=== PATIENT | male | born 1965 | race Caucasian/White ===

== ENCOUNTER 2017-10-30 20:12 | Emergency (ER) | payer MEDICAID, SELFPAY ==
[2017-10-30 20:13] VITALS: BP 130/62; PULSE 87; RESP 15; TEMP 37; O2SAT 98; BMI 23.3
--- NOTE | 2017-10-30 21:05 | ED.VISSUMM ---
- ER Visit Summary Date of Service: 10/30/17 Chief Complaint: Lower extremity rash History of Present Illness: The patient is a 52 M to the emergency department with lower extremity rash. Patient was out in the [place] over the weekend. He thinks that he has poison [place]. He said this before and he feels the same. He does have some mild irritation of the lower extremity. He did try calamine lotion with no relief. He has no history of immunosuppression. He is not a diabetic. The patient is otherwise healthy. Physical Examination: M is relatively unremarkable. Patient has evidence of linear, contact dermatitis of the left lower extremity. No cellulitis or weeping. Pulses are normal. Test Results: [] Emergency Department Course and Treatment: Will be treated with prednisone here. He will continue Benadryl. He will be kept on a prednisone burst. Patient be discharged home. Treatment Plan: [] Disposition: Discharge Impression: 1. Contact dermatitis This note was generated with [employer] dictation software. It may contain incorrect words, spelling, and punctuation that were not noted in review of the chart prior to signing ED Disposition - Plan for ED Patient: Chief Complaint: Rash Instructions: ED Dermatitis Poison [place] Prescriptions: Prednisone 10 mg PO UD #33 tab Referrals: Care Physician,No Primary [Primary Care Provider] -
[2017-10-30] MEDS: predniSONE 20 MG Tablet 60 MG PO (21:06)
== END 2017-10-30 21:25 | disposition home or self-care (01) ==
PROVIDERS: Emergency Provider Emergency Medicine
DX: L24.7 Irritant contact dermatitis due to plants, except food (principal); Z72.0 Tobacco use
CPT/HCPCS: 99283

== ENCOUNTER 2021-03-24 15:27 | Emergency (ER) | payer MEDICAID, SELFPAY ==
[2021-03-24 15:28] VITALS: BP 152/107; PULSE 55; RESP 16; TEMP 36; O2SAT 100; BMI 21.4
--- NOTE | 2021-03-24 15:42 | ED.VIS.GI ---
HPI HPI - GI History of Present Illness Chief Complaint: Shortness of Breath Detail of Chief Complaint: Patient states epigastric pain with nausea and vomiting not shortness of br Informant: patient Abdominal Pain/Flank Pain Onset: Weeks (1 to 2 weeks) Context: Sudden Onset Timing: Continuous Quality: Aching Location: Epigastric Current Severity: Moderate Maximum Severity: Severe Worsened by: Nothing; Not Worsened By Car ride, Food and Movement Relieved by: Nothing; Not Relieved By Antacids, Food and Remaining Still Nausea/Vomiting/Emesis GI Symptom: Positive for Nausea and Vomiting Onset: Weeks (For 1 to 2 weeks) Quality: Negative for Blood streaks, Coffee ground and Hematemesis Severity: Severe Diarrhea/Melena/Hematochezia GI Symptom: Negative for Diarrhea, Melena and Hematochezia Associated Symptoms Associated Symptoms: Negative for Dysuria, Frequency, Hematuria and Urgency Narrative Narrative: Patient is a 55-year-old male with no sniffing past medical history who is incompletely vaccinated for Covid. He presents because of epigastric pain with nausea vomiting started 1 to 2 weeks ago. He does report nasal congestion. He states he has a sore throat, which he believes is due to the vomiting. He states he is vomited numerous times per day. He feels lightheaded, thirsty and dry mouth. His significant other and her children are not ill. He states she became very ill and remained ill for weeks after receiving the first dose of the Pfizer vaccine. He did not get the second dose because of the reaction he had to the first. He does admit to smoking 1 pack/day. His cough is nonproductive and unchanged. He denies headache, visual, ocular auditory symptoms. He denies decreased hearing or ringing in his ears. He denies loss of taste or smell. He denies cardiac or respiratory symptoms. He denies rash. Denies change in the color his stool, consistency, caliber or frequency. He denies history of hepatitis. He denies history of hiatal hernia, GERD or ulcer. Prior similar symptoms: No Recent Illness/Hospitalization: No PFSH PFSH Medical History no medical history no medical history Home Medications ondansetron 4 mg PO Q8H PRN PRN #10 tab 03/24/21 [Rx Last Taken Unknown] Allergy/AdvReac Type Severity Reaction Status Date / Time No Known Allergies Allergy Verified 03/24/21 15:28 Surgical History no surgical history no surgical history Social History (Updated 03/24/21 @ 15:[address] Reji Foreman MD) household members: significant other and children Smoking Status: Current every day smoker tobacco type: cigarettes alcohol intake: current alcohol intake frequency: other substance use type: marijuana ROS ROS ED Constitutional Constitutional ED: Reports chills, fever(s) and subjective; Denies sweats or weight loss ENT ENT ED: Reports sore throat; Denies ear pain or rhinorrhea Cardiovascular Cardiovascular: Denies chest pain, orthopnea, palpitations or paroxysmal nocturnal dyspnea Respiratory/Chest Respiratory/Chest: Reports cough; Denies dyspnea, dyspnea on exertion, orthopnea, paroxysmal nocturnal dyspnea or sputum Gastrointestinal Gastrointestinal: Reports abdominal pain, nausea and vomiting; Denies constipation, diarrhea or melena Genitourinary Genitourinary ED: Denies dysuria, hematuria or urinary frequency Musculoskeletal Musculoskeletal: Reports arthralgias and myalgias; Denies back pain or neck pain Integumentary Denies rash Neurologic Neurologic: Reports weakness; Denies headache(s) or paresthesias Endocrine Endocrinology: Denies polydipsia, polyphagia or polyuria Hematologic/Lymphatic Hematologic/Lymphatic: Denies easy bleeding or easy bruising EXAM Physical Exam Const Vital Signs: 03/24/21 15:28 03/24/21 16:10 03/24/21 16:11 Temperature 96.8 F L Temperature Source Temporal Pulse Rate 55 L Respiratory Rate 16 Respiratory Effort Normal Non-Labored Respiratory Pattern Normal Blood Pressure 152/107 H 176/95 H Blood Pressure Mean 122 122 Pulse Ox 100 Oxygen Delivery Method Room Air Positive well nourished and well developed General Appearance ED: well developed and other Patient does not appear well. Is not toxic. ; Negative for pallor HEENT Reports TM's clear and dry mucous membranes normocephalic and atraumatic Tympanic Membrane ED: Yes TM's clear Mouth ED: Yes dry mucous membranes Mouth: dry mucous membranes Eyes PERRL and EOMs intact bilaterally General Eye ED: Negative for pale conjunctiva or scleral icterus Neck no lymphadenopathy, supple and no JVD Resp normal respiratory effort and clear to auscultation bilaterally Cardio regular rate, regular rhythm, S1 normal heart sound and S2 normal heart sound GI non-distended and no masses; Negative for non-tender Inspection: other Other Details: Shorts are noted to be very loose. He reports significant weight loss. Does not know how much. Auscultation: Negative for normoactive bowel sounds Palpation: soft, tender epigastric and guarding; Negative for rigid or rebound tenderness present Back/Spine no CVA tenderness Cervical Spine: Negative for cervical spine tenderness Thoracic Spine / Upper Back: Negative for thoracic spinal tenderness Extremity full ROM General Extremety ED: Negative for edema or tenderness General Extremity: Negative for edema Neuro CN's II-XII intact bilaterally, moves all extremities and no sensory deficits noted Sensorium / Orientation: alert, oriented to person, oriented to place and oriented to time Psych mental status grossly normal and thought process normal Skin General Skin Exam: Negative for jaundice or pallor Lesions: no lesions Rashes: no rashes Trauma: abrasion MDM MDM MDM Narrative Medical decision making narrative: Patient presents with nausea vomiting. This may represent viral illness. This could represent Covid. Clinically appears dehydrated. 1 L of normal saline was ordered. CBC was obtained to assess white count as well as H&H. Comprehensive metabolic panel to assess transaminases, anion gap, renal function. Also to assess if there is any acid-base disturbance. I.e. anion gap and electrolyte abnormality. Lipase was obtained to rule out pancreatitis. He was medicated with Zofran for the nausea vomiting and morphine for the pain. Patient passed p.o. challenge. Is no longer having pain. He informed the nurse that he cannot wait for his home go instructions. I asked him for 5 to 10 minutes he states he may not be able to wait. Lab Data Attestation: I reviewed the patient's lab results. Lab results narrative: Laboratory results are unremarkable. CO2 is slightly elevated 34. BUN and creatinine are normal. ALT is slightly elevated. Lipase is below normal. Labs: Laboratory Results - last 24 hr 03/24/21 03/24/21 16:00 16:00 WBC 13.7 H RBC 5.14 Hgb 15.6 Hct 45.8 MCV 89.1 MCH 30.4 MCHC 34.1 RDW Std Deviation 42.2 RDW Coeff of Dwaine 12.8 Plt Count 272 MPV 8.5 Immature Gran % (Auto) 0.400 Neut % (Auto) 63.8 Lymph % (Auto) 24.8 [place] % (Auto) 8.1 Eos % (Auto) 2.3 Baso % (Auto) 0.6 Absolute Neuts (auto) 8.7 H Absolute Lymphs (auto) 3.39 Nucleated RBC % 0 Sodium 137 Potassium 3.9 Chloride 100 Carbon Dioxide 34.0 H Anion Gap 3 L BUN 13 Creatinine 0.70 Estim Creat Clear Calc 107.19 Est GFR (MDRD) Af Amer 151 Est GFR (MDRD) Non-Af 125 BUN/Creatinine Ratio 18.5 Glucose 107 H Calcium 9.7 Total Bilirubin 0.70 AST 38 H ALT 102 H Alkaline Phosphatase 121 H Total Protein 8.0 Albumin 3.9 Globulin 4.1 Albumin/Globulin Ratio 1.0 Lipase 72 L Discharge Plan Triage Chief Complaint: Shortness of Breath ED Provider: Reji Foreman Dx/Rx/DC Orders Clinical Impression: Intractable nausea and vomiting, Acute epigastric pain, Dehydration, mild Instructions: ED Vomiting (Adult) Prescriptions: New ondansetron [ondansetron] 4 MG tablet 4 mg PO Q8H PRN PRN (Reason: Nausea) Qty: 10 RF: 0 Primary Care Provider: Care Physician,No Primary Referrals: Fast,Mira, DO [NON-STAFF] - 3-5 Days if not improving Care Physician,No Primary [Primary Care Provider] - Disposition Disposition: Home, Self Care
[2021-03-24] MEDS: 0.9% Normal Saline 1,000 ML 1000 ML IV (16:04)
[2021-03-24] MEDS: Morphine 4 MG/ML Syringe IV (16:04)
[2021-03-24] MEDS: Ondansetron 4 MG/2 ML Vial IV (16:04)
[2021-03-24 16:07] LABS: Absolute Lymphocyte Count 3.39 X10^3/uL (0.83-4.51); Absolute Neutrophil Count 8.7 X10^3/uL (2.0-7.7); Basophil# 0.08 X10^3/uL; Basophil% 0.6 % (0-1); Eosinophil# 0.31 X10^3/uL; Eosinophils% 2.3 % (0-5); Hematocrit 45.8 % (40-54); Hemoglobin 15.6 g/dL (13.0-16.5); Lymphocyte # 3.39 X10^3/ul (0.83-4.51); Lymphocyte % 24.8 % (19-41); Mean Corp Hgb Conc 34.1 g/dL (32-36); Mean Corpuscular Hgb 30.4 pg (27.0-32.0); Mean Corpuscular Volume 89.1 fL (80-94); Mean Platelet Vol. 8.5 fl (6.2-12.0); Monocyte# 1.11 X10^3/uL; Monocyte% 8.1 % (0-10); NRBC Flagged by Analyzer 0 % (0-5); Neutrophil # 8.74 X10^3/uL (2.7-7.7); Neutrophil % 63.8 % (47-70); Platelet Count 272 K/mm3 (150-450); RBC Distribution Width CV 12.8 % (11.6-14.6); RBC Distribution Width SD 42.2 fl (35.1-43.9); Red Blood Count 5.14 M/mm3 (4.6-6.2); White Blood Count 13.7 K/mm3 (4.4-11.0)
[2021-03-24 16:10] VITALS: BP 176/95
[2021-03-24 16:24] LABS: BUN 13 mg/dL (7-18); Glucose 107 mg/dL (74-106)
[2021-03-24 16:25] LABS: AST(SGOT) 38 U/L (15-37); Alanine Aminotransfer ALT/SGPT 102 U/L (16-61); Albumin, Serum 3.9 g/dL (3.2-5.0); Alkaline Phosphatase 121 U/L (45-117); Anion Gap 3 (5-15); BUN/Creat Ratio 18.5 RATIO (10-20); Calcium,Total 9.7 mg/dL (8.5-10.1); Chloride 100 mmol/L (98-107); EST Glomerular Filtration Rate 125 mL/min (>60); Est Glom Filt Rate - Afr Amer 151 mL/min (>60); Estimated Creatinine Clearance 107.19 ml/min; Globulin 4.1 g/dL (2.2-4.2); Lipase 72 U/L (73-393); Potassium 3.9 mmol/L (3.5-5.1); Sodium Level 137 mmol/L (136-145)
[2021-03-24 18:37] VITALS: BP 161/90; PULSE 88; RESP 14; O2SAT 99
== END 2021-03-24 18:39 | disposition home or self-care (01) ==
PROVIDERS: Emergency Provider Emergency Medicine
DX: R11.2 Nausea with vomiting, unspecified (principal); R10.13 Epigastric pain; E86.0 Dehydration; F17.210 Nicotine dependence, cigarettes, uncomplicated; F12.10 Cannabis abuse, uncomplicated
CPT/HCPCS: 80053; 83690; 85025; 87426; 96374; 96375; 99283; J7030; A4216; J2405

== ENCOUNTER 2021-03-25 15:22 | Inpatient (IN) | payer MEDICAID, SELFPAY ==
[2021-03-25 15:23] VITALS: BP 163/100; PULSE 66; RESP 18; TEMP 36.6; O2SAT 99; BMI 20.1
[2021-03-25 16:00] LABS: Bacteria 0 SEEN /hpf (None Seen); Mucous, Urine 0 SEEN /hpf (<or=2+); Red Blood Cells-Urine 0 SEEN /hpf (0-5); Squamous Epithelial Cells - UA 0 SEEN /hpf (0-5); White Blood Cells 0 SEEN /hpf (0-5)
[2021-03-25 17:08] LABS: Color, Urine Yellow (Yellow); Glucose, Dipstick Normal (Normal); Ketone-Dipstick Negative (Negative); Leukocyte Esterase-Dipstick Negative /ul (Negative); Nitrite-Dipstick Negative (Negative); Occult Blood-Urine 10 /ul (Negative); Protein-Dipstick 30 mg/dl (Negative); Specific Gravity, Urine 1.015 (1.002-1.030); Urine Bilirubin Dipstick Negative (Negative); Urine Clarity Clear (Clear); Urine Urobilinogen Normal (Normal)
--- NOTE | 2021-03-25 17:14 | CT_ITS ---
HISTORY: abd pain, weight loss EXAMINATION: CT Abdomen And Pelvis W/ Contrast Injection TECHNIQUE: Helically acquired images were obtained of the abdomen and pelvis following oral and IV contrast. IV Contrast dosage and agent: 100mL Isovue-300 Oral contrast: Yes. COMPARISON: None. FINDINGS: LOWER CHEST: Lung bases are clear. No cardiomegaly or pericardial effusion. LIVER: Heterogenous enhancement pattern with higher attenuation along the gallbladder fossa suggesting steatosis. No focal mass. GALLBLADDER AND BILIARY TREE: Radiodense material in the gallbladder. Abnormal gallbladder distention with diffuse wall edema versus pericholecystic fluid. No intra- or extrahepatic biliary ductal dilation. PANCREAS: No focal cystic or solid mass. SPLEEN: Normal size without focal cystic or solid mass. ADRENAL GLANDS: No nodules. KIDNEYS AND URETERS: Normal renal size and position. No hydronephrosis or nephrolithiasis. PERITONEUM: No ascites or free air. BOWEL: No evidence of acute appendicitis. Abnormal gastric contour with possible stricture at the mid greater curvature and gas in the gastric wall posteriorly in the superior fundus suspicious for ulceration. Oral contrast does pass through small bowel into the proximal colon. No focal inflammatory bowel wall changes. LYMPH NODES: No enlarged mesenteric or retroperitoneal lymph nodes. VESSELS: Aorta is non-dilated. URINARY BLADDER: Unremarkable. REPRODUCTIVE ORGANS: No pelvic masses. ABDOMINAL WALL: No discrete abdominal or pelvic wall hernia. BONES: No acute or aggressive abnormality. CT/Abdomen/Pelvis WITH Contrast IMPRESSION: Abnormal gallbladder distention with probable cholelithiasis, wall thickening and pericholecystic fluid. Recommend correlation with gallbladder ultrasound for acute cholecystitis. Findings suspicious for ulcer in the gastric fundus posteriorly. Adjacent contour abnormality suggests stricture, inflammatory versus neoplastic. Consider endoscopic correlation. Individualized dose optimization techniques were used for this CT. at 2015 Reported and signed by: James Toscano MD Electronically Signed: James Toscano MD at 20:14 EDT Tel , Service support ,
--- NOTE | 2021-03-25 17:16 | ED.VIS.GI ---
HPI HPI - GI History of Present Illness Chief Complaint: Abd Pain Informant: patient Abdominal Pain/Flank Pain Onset: Month(s) Narrative Narrative: Patient presents reporting feeling sick since his initial Covid vaccination first dose. Initially reported it was 2 weeks ago stating office had 35 pound weight loss. Initial discard his initial Pfizer vaccination was January 26 nearly 2 months ago. He states he cannot think at this point. He is reporting intermittent abdominal pain vomiting since then that would improve for 2 days and comes back. Initially state if he seen any body or facilities he said no however later noted he was seen yesterday in the ED here. He states last bowel movement yesterday. Occasional blood in the stools. No anticoagulation medicines. He does not have a PCP. He does not take daily medicines. He states he urinates like a faucet. He states he has a cough. He has tobacco history. Denies family history of colon cancer. States return due to pain. He states he is not passing gas since his vaccination 2 months ago however states is having bowel movements. Reviewing records from yesterday he had abdominal labs normal had a white count 13.7. Given Zofran and morphine. He was feeling better. He left before discharge paperwork. Additional records notes does drink alcohol, noted from nursing that he smokes marijuana. He had a normal lipase yesterday. PFSH PFSH Medical History Anxiety [place] of trauma Smoker Substance abuse Substance abuse Tobacco use Medical History no medical history Home Medications ondansetron 4 mg PO Q8H PRN PRN #10 tab 03/24/21 [Rx Last Taken Unknown] Allergy/AdvReac Type Severity Reaction Status Date / Time No Known Allergies Allergy Verified 03/25/21 17:08 Family History (Updated 03/25/21 @ 20:[address] Teresa Mckay MD) Mother Diabetes Surgical History (Updated 03/25/21 @ 20:[address] Teresa Mckay MD) History of surgery on arm Surgical History no surgical history Social History (Updated 03/25/21 @ 21:[address] Teresa Mckay MD) household members: significant other and children Smoking Status: Current every day smoker tobacco type: cigarettes Smoking packs per day: 1 Smoking cigarettes per day: 20.0 alcohol intake: current alcohol intake frequency: holidays/special occasions only substance use type: marijuana ROS ROS ED Constitutional Constitutional ED: Reports weight loss; Denies chills, fever(s) or sweats Eyes Eyes: Denies change in vision ENT ENT ED: Denies dysphagia or sore throat Cardiovascular Cardiovascular: Denies chest pain, leg edema, palpitations or racing heartbeat Respiratory/Chest Respiratory/Chest: Reports cough; Denies dyspnea or dyspnea on exertion Gastrointestinal Gastrointestinal: Reports abdominal pain, nausea and vomiting; Denies diarrhea Genitourinary Genitourinary ED: Denies dysuria, hematuria or urinary frequency Musculoskeletal Musculoskeletal: Denies back pain, extremity pain or neck pain Integumentary Denies rash or wounds Neurologic Neurologic: Denies headache(s), paresthesias or weakness EXAM Physical Exam Const Vital Signs: 03/25/21 15:23 03/25/21 17:38 03/25/21 19:17 Temperature 97.9 F 97.8 F Temperature Source Temporal Temporal Pulse Rate 66 57 L 66 Respiratory Rate 18 18 14 Blood Pressure 163/100 H 165/103 H 149/100 H Blood Pressure Mean 121 123 116 Pulse Ox 99 100 98 Oxygen Delivery Method Room Air Room Air Room Air Positive well nourished and well developed Constitutional Narrative: Tearful during exam, with calm down then become frustrated. General Appearance ED: well developed HEENT Reports moist mucous membranes normocephalic and atraumatic Eyes PERRL, EOMs intact bilaterally and conjunctivae normal General Eye ED: Yes normal appearance of both eyes Neck no lymphadenopathy and supple General: Negative for tenderness Chest Wall Chest: Negative for tenderness Resp normal respiratory effort and normal air movement Effort and Inspection: symmetric chest movement; Negative for respiratory distress Cardio regular rate, regular rhythm and no murmurs Peripheral Pulses: pulses 2+ throughout GI normal to inspection, nondistended, normoactive bowel sounds GI Narrative: Generalized tenderness. Palpation: Negative for guarding or rebound tenderness present Back/Spine no CVA tenderness and no thoracic nor lumbar tenderness Extremity normal to inspection General Extremety ED: Negative for edema or tenderness General Extremity: Negative for edema Neuro oriented x3 and no sensory deficits noted Sensorium / Orientation: awake and alert Skin no rashes or lesions noted and no wounds MDM MDM MDM Narrative Medical decision making narrative: Patient vital signs stable nontoxic complaining of pain generalized pain on exam. Reporting 35 pound weight loss in 2 months. Intermittent vomiting. Tobacco history. Due to patient's complaints of weight loss pain contrast CT ordered to rule out masses. Recheck labs, white count of 15.4 lipase returned elevated today at 1154. Slight transaminitis. With his urine frequency urine obtained negative. Tox screen added noted positive for cannabis, opiates and amphetamines. Reported to me that he only uses marijuana. He states he did not drink alcohol in [address] scan noted distended thickened gallbladder with probable cholelithiasis with pericystic colic fluid, is concerning for cholecystitis. Also reported suspicious gastric findings with stricture, inflammatory versus neoplastic concerns. I did speak with hospitalist Dr. Mckay for admission. General surgeon Dr. Aivla, present in the ED, evaluated the patient in the ED as a informatics consultant to follow. Patient updated on findings. Patient treated for pain nausea and continued fluids in the ED. Lab Data Attestation: I reviewed the patient's lab results. Labs: Laboratory Results - last 24 hr 03/25/21 03/25/21 03/25/21 15:32 15:32 15:43 WBC 15.4 H RBC 5.55 Hgb 16.8 H Hct 49.9 MCV 89.9 MCH 30.3 MCHC 33.7 RDW Std Deviation 42.6 RDW Coeff of Dwaine 12.9 Plt Count 268 MPV 8.8 Immature Gran % (Auto) 0.400 Neut % (Auto) 74.4 H Lymph % (Auto) 15.9 L [place] % (Auto) 7.9 Eos % (Auto) 1.0 Baso % (Auto) 0.4 Absolute Neuts (auto) 11.5 H Absolute Lymphs (auto) 2.45 Nucleated RBC % 0 Sodium 135 L Potassium 4.1 Chloride 98 Carbon Dioxide 31.0 Anion Gap 6 BUN 5 L Creatinine 0.76 Estim Creat Clear Calc 95.46 Est GFR (MDRD) Af Amer 138 Est GFR (MDRD) Non-Af 114 BUN/Creatinine Ratio 6.6 L Glucose 117 H Calcium 9.8 Total Bilirubin 0.60 AST 27 ALT 93 H Alkaline Phosphatase 120 H Total Protein 8.6 H Albumin 4.0 Globulin 4.6 H Albumin/Globulin Ratio 0.9 Lipase 1154 H Urine Color Yellow Urine Clarity Clear Urine pH 7.0 Ur Specific [place] 1.015 Urine Protein 30 H Urine Glucose (UA) Normal Urine Ketones Negative Urine Occult Blood 10 H Urine Nitrite Negative Urine Bilirubin Negative Urine Urobilinogen Normal Ur Leukocyte Esterase Negative Urine RBC 0 SEEN Urine WBC 0 SEEN Ur Squamous Epith Cells 0 SEEN Urine Bacteria 0 SEEN Urine Mucus 0 SEEN Urine Opiates Screen Urine Methadone Screen Ur Barbiturates Screen Ur Phencyclidine Scrn Ur Amphetamines Screen U Methamphetamin-MDMA U Benzodiazepines Scrn Urine Cocaine Screen U Cannabinoids Screen Ur Drug Screen Comment 03/25/21 15:43 WBC RBC Hgb Hct MCV MCH MCHC RDW Std Deviation RDW Coeff of Dwaine Plt Count MPV Immature Gran % (Auto) Neut % (Auto) Lymph % (Auto) [place] % (Auto) Eos % (Auto) Baso % (Auto) Absolute Neuts (auto) Absolute Lymphs (auto) Nucleated RBC % Sodium Potassium Chloride Carbon Dioxide Anion Gap BUN Creatinine Estim Creat Clear Calc Est GFR (MDRD) Af Amer Est GFR (MDRD) Non-Af BUN/Creatinine Ratio Glucose Calcium Total Bilirubin AST ALT Alkaline Phosphatase Total Protein Albumin Globulin Albumin/Globulin Ratio Lipase Urine Color Urine Clarity Urine pH Ur Specific [place] Urine Protein Urine Glucose (UA) Urine Ketones Urine Occult Blood Urine Nitrite Urine Bilirubin Urine Urobilinogen Ur Leukocyte Esterase Urine RBC Urine WBC Ur Squamous Epith Cells Urine Bacteria Urine Mucus Urine Opiates Screen POSITIVE H Urine Methadone Screen NEGATIVE Ur Barbiturates Screen NEGATIVE Ur Phencyclidine Scrn NEGATIVE Ur Amphetamines Screen POSITIVE H U Methamphetamin-MDMA NEGATIVE U Benzodiazepines Scrn NEGATIVE Urine Cocaine Screen NEGATIVE U Cannabinoids Screen POSITIVE H Ur Drug Screen Comment Radiography Diagnostic Testing: Clinical Impression(s) from Imaging Studies Abdomen/Pelvis CT 03/25/21 17:14 IMPRESSION: Abnormal gallbladder distention with probable cholelithiasis, wall thickening and pericholecystic fluid. Recommend correlation with gallbladder ultrasound for acute cholecystitis. Findings suspicious for ulcer in the gastric fundus posteriorly. Adjacent contour abnormality suggests stricture, inflammatory versus neoplastic. Consider endoscopic correlation. Individualized dose optimization techniques were used for this CT. at 2015 Reported and signed by: James Toscano MD Electronically Signed: James Toscano MD at 20:14 EDT Tel , Service support , Chest X-Ray 03/25/21 18:31 IMPRESSION: No radiographic evidence of acute cardiopulmonary disease. at 1907 Reported and signed by: James Toscano MD Electronically Signed: James Toscano MD at 19:06 EDT Tel , Service support , Discharge Plan Dx/Rx/DC Orders Clinical Impression: Acute cholecystitis, Gastric mass, Acute pancreatitis Disposition Disposition: Acute Care Hospital [facility] Discharge Date/Time: 03/25/21 21:01
[2021-03-25] MEDS: 0.9% Normal Saline 1,000 ML 1000 ML IV (17:29)
[2021-03-25] MEDS: Morphine 4 MG/ML Syringe IV ×2 (17:31→19:16)
[2021-03-25] MEDS: Ondansetron 4 MG/2 ML Vial IV (17:31)
[2021-03-25 17:38] VITALS: BP 165/103; PULSE 57; RESP 18; O2SAT 100
[2021-03-25 17:42] LABS: Absolute Lymphocyte Count 2.45 X10^3/uL (0.83-4.51); Absolute Neutrophil Count 11.5 X10^3/uL (2.0-7.7); Basophil# 0.06 X10^3/uL; Basophil% 0.4 % (0-1); Eosinophil# 0.15 X10^3/uL; Hematocrit 49.9 % (40-54); Hemoglobin 16.8 g/dL (13.0-16.5); Lymphocyte # 2.45 X10^3/ul (0.83-4.51); Lymphocyte % 15.9 % (19-41); Mean Corp Hgb Conc 33.7 g/dL (32-36); Mean Corpuscular Hgb 30.3 pg (27.0-32.0); Mean Corpuscular Volume 89.9 fL (80-94); Mean Platelet Vol. 8.8 fl (6.2-12.0); Monocyte# 1.22 X10^3/uL; Monocyte% 7.9 % (0-10); NRBC Flagged by Analyzer 0 % (0-5); Neutrophil # 11.49 X10^3/uL (2.7-7.7); Neutrophil % 74.4 % (47-70); Platelet Count 268 K/mm3 (150-450); RBC Distribution Width CV 12.9 % (11.6-14.6); RBC Distribution Width SD 42.6 fl (35.1-43.9); Red Blood Count 5.55 M/mm3 (4.6-6.2); White Blood Count 15.4 K/mm3 (4.4-11.0)
[2021-03-25 18:10] LABS: ALB/GLOB Ratio 0.9 RATIO (0.9-2.4); AST(SGOT) 27 U/L (15-37); Alanine Aminotransfer ALT/SGPT 93 U/L (16-61); Alkaline Phosphatase 120 U/L (45-117); Anion Gap 6 (5-15); BUN 5 mg/dL (7-18); BUN/Creat Ratio 6.6 RATIO (10-20); Calcium,Total 9.8 mg/dL (8.5-10.1); Chloride 98 mmol/L (98-107); Creatinine, Serum 0.76 mg/dL (0.70-1.30); EST Glomerular Filtration Rate 114 mL/min (>60); Est Glom Filt Rate - Afr Amer 138 mL/min (>60); Estimated Creatinine Clearance 95.46 ml/min; Globulin 4.6 g/dL (2.2-4.2); Glucose 117 mg/dL (74-106); Lipase 1154 U/L (73-393); Potassium 4.1 mmol/L (3.5-5.1); Protein, Total 8.6 g/dL (6.4-8.2); Sodium Level 135 mmol/L (136-145)
[2021-03-25 18:11] LABS: Amphetamine Urine VISTA POSITIVE (<1000 ng/mL); Barbiturate Urine VISTA NEGATIVE (< 200 ng/mL); Benzodiazepine Urine VISTA NEGATIVE (< 200 ng/mL); Cocaine Urine VISTA NEGATIVE (< 300 ng/mL); Ecstacy Urine VISTA NEGATIVE (< 500 ng/mL); Methadone Urine VISTA NEGATIVE (< 300 ng/mL); PCP Urine VISTA NEGATIVE (< 25 ng/mL); THC Urine VISTA POSITIVE (< 50 ng/mL); Vista UDS pH Range 6
--- NOTE | 2021-03-25 18:31 | RAD_ITS ---
HISTORY: cough EXAMINATION/TECHNIQUE: XR Chest 1 View: Portable upright AP chest x-ray COMPARISON: None FINDINGS: LINES/DEVICES: None. LUNGS: No consolidation, edema or effusion. No pneumothorax. MEDIASTINUM AND CARDIOVASCULAR STRUCTURES: Cardiac silhouette not enlarged. Central airways and mediastinal contour are unremarkable. BONES AND SOFT TISSUES: No acute bony abnormalities. RAD/Chest 1 View (Portable) IMPRESSION: No radiographic evidence of acute cardiopulmonary disease. at 1907 Reported and signed by: James Toscano MD Electronically Signed: James Toscano MD at 19:06 EDT Tel , Service support ,
[2021-03-25] MEDS: 0.9% Normal Saline 1,000 ML 150 ML IV ×2 (19:16→21:32)
[2021-03-25 19:17] VITALS: BP 149/100; PULSE 66; RESP 14; TEMP 36.6; O2SAT 98
--- NOTE | 2021-03-25 19:49 | HP.PCM.HOS_ITS ---
HPI - General General Date of Admission: 03/25/21 Date of Service: 03/25/21 Chief Complaint: Abdominal pain, epigastric and RUQ, weight loss. HPI Narrative The patient is a 55 y/o M w/ PMHx: Chronic cannabis use, Tobacco use otherwise denies any prior medical history or routine medication usage who presents to the [facility] ED on 03/25/21 with history of generalized fatigue, malaise, poor intake and nausea with weight loss over the last several weeks initially stating that his symptoms started following his last Pfizer vaccination 2 months prior however he notes since then intermittent abdominal discomfort, nausea and emesis which would yocasta but eventually recur prompting ED evaluation today prior however he had recurrent significant 10 out of 10 pain to the epigastric and right upper quadrant region prompting repeat ED evaluation. He does note that he will occasionally have bright blood in his stools. He does report that he has urinary frequency. Work-up in the ED included T 97.9, heart rate 66, BP initially 163/100, respiratory rate 18, 99% on room air, CBC with WBC 15.4, hemoglobin 16.8, platelet 268 with left shift, CMP with sodium 135, BUN/creatinine 5/0.76, glucose 117, AST/ALT 27/93, alk phos 120, total bilirubin 0.6, lipase 1154, chest x-ray with no acute cardiopulmonary findings, CT abdomen and pelvis with an abnormal gallbladder noted to be distended with probable cholelithiasis, wall thickening and pericholecystic fluid with recommended follow-up gallbladder ultrasound to assess for acute cholecystitis, suspicious findings for an ulcer in the gastric fundus posteriorly as well is an adjacent contour abnormality suggesting stricture/inflammation versus neoplastic process. [facility] Medical History Sequela of trauma Substance abuse Tobacco use Medical History no medical history Home Medications ondansetron 4 mg PO Q8H PRN PRN #10 tab 03/24/21 [Rx Last Taken Unknown] Allergy/AdvReac Type Severity Reaction Status Date / Time No Known Allergies Allergy Verified 03/25/21 17:08 Family History (Updated 03/25/21 @ 20:[address] Teresa Mckay MD) Mother Diabetes other (Patient does not know his paternal family history.) Surgical History (Updated 03/25/21 @ 20:[address] Teresa Mckay MD) History of surgery on arm Surgical History no surgical history Social History (Updated 03/25/21 @ 21:[address] Teresa Mckay MD) household members: significant other and children Smoking Status: Current every day smoker tobacco type: cigarettes Smoking packs per day: 1 Smoking cigarettes per day: 20.0 alcohol intake: current alcohol intake frequency: holidays/special occasions only substance use type: marijuana ROS ROS Narrative Admission Review of Systems: CONSTITUTIONAL: No weight loss, fever, chills, + weakness or fatigue. HEENT: Eyes: No visual loss, blurred vision, double vision or yellow sclerae. Ears, Nose, Throat: No hearing loss, sneezing, congestion, runny nose or sore throat. SKIN: No rash or itching, lesions, wounds. CARDIOVASCULAR: No chest pain, chest pressure or chest discomfort, palpitations, edema, orthopnea, syncopal events. RESPIRATORY: No shortness of breath, cough or sputum, wheezing, hemoptysis. GASTROINTESTINAL: + anorexia, nausea, vomiting, abdominal pain, hematochezia, No melena, BRBPR. GENITOURINARY: No dysuria, frequency, urgency or retention. NEUROLOGICAL: No headache, dizziness, syncope, paralysis, ataxia, numbness or tingling in the extremities, focal weakness, change in bowel or bladder control, seizure. MUSCULOSKELETAL: + muscle, back pain, joint pain or stiffness. HEMATOLOGIC: No anemia, bleeding or bruising. LYMPHATICS: No enlarged nodes. No history of splenectomy. PSYCHIATRIC: No history of depression or anxiety. ENDOCRINOLOGIC: No reports of sweating, cold or heat intolerance. + polyuria or polydipsia. ALLERGIES: No history of asthma, hives, eczema or rhinitis. Vital Signs Vital Signs Vital Signs: 03/25/21 15:23 03/25/21 17:38 03/25/21 19:17 Temperature 97.9 F 97.8 F Temperature Source Temporal Temporal Pulse Rate 66 57 L 66 Respiratory Rate 18 18 14 Blood Pressure 163/100 H 165/103 H 149/100 H Blood Pressure Mean 121 123 116 Pulse Ox 99 100 98 Oxygen Delivery Method Room Air Room Air Room Air Weight Weight: 132 lb 6 oz Body Mass Index (BMI) 20.1 Physical Exam Narrative Physical Examination: General: Awake, alert, oriented x 3 and cooperative, seated upright in the ED bed in no apparent distress but very anxious. Skin: Normal color, normal turgor, no icterus, no cyanosis. HEENT: AT/NC, EOMI, PERRLA, moderately dry MM, no carotid bruits or JVD noted. Lungs: CTA bilaterally, moderate effort, mild decrease BL bases, no rales, ronchi or wheezing. Heart: Regular rate and rhythm; no gallop, rub audible. Abdomen: Soft, significant epigastric and right upper quadrant discomfort with guarding and rebound, no obvious distention, mildly hyperactive bowel sounds, difficult to assess HSM secondary to pain with examination. Extremities: No cyanosis, clubbing, or edema. Neurological: Patient awake, alert, oriented as noted, cognitive function intact; pupils equally reactive to light and accommodation, cranial nerves II- XII grossly normal, moving all 4 extremities, no focal deficits, strength mildly to moderately will decrease secondary to acute presentation. Psychiatric: Affect appears anxious, notes several friends of recently, noted evidence of depressive or anxiety feelings. Results Lab / Micro Data Result Diagrams: 03/25/21 15:32 03/25/21 15:32 Labs: Laboratory Results - last 24 hr 03/25/21 15:32: WBC 15.4 H, RBC 5.55, Hgb 16.8 H, Hct 49.9, MCV 89.9, MCH 30.3, MCHC 33.7, RDW Std Deviation 42.6, RDW Coeff of Dwaine 12.9, Plt Count 268, MPV 8.8, Immature Gran % (Auto) 0.400, Neut % (Auto) 74.4 H, Lymph % (Auto) 15.9 L, [place] % (Auto) 7.9, Eos % (Auto) 1.0, Baso % (Auto) 0.4, Absolute Neuts (auto) 11.5 H, Absolute Lymphs (auto) 2.45, Nucleated RBC % 0 03/25/21 15:32: Sodium 135 L, Potassium 4.1, Chloride 98, Carbon Dioxide 31.0, Anion Gap 6, BUN 5 L, Creatinine 0.76, Estim Creat Clear Calc 95.46, Est GFR (MDRD) Af Amer 138, Est GFR (MDRD) Non-Af 114, BUN/Creatinine Ratio 6.6 L, Glucose 117 H, Calcium 9.8, Total Bilirubin 0.60, AST 27, ALT 93 H, Alkaline Phosphatase 120 H, Total Protein 8.6 H, Albumin 4.0, Globulin 4.6 H, Albumin/Margot bulin Ratio 0.9, Lipase 1154 H 03/25/21 15:43: Urine Color Yellow, Urine Clarity Clear, Urine pH 7.0, Ur Specific [place] 1.015, Urine Protein 30 H, Urine Glucose (UA) Normal, Urine Ketones Negative, Urine Occult Blood 10 H, Urine Nitrite Negative, Urine Bilirubin Negative, Urine Urobilinogen Normal, Ur Leukocyte Esterase Negative, Urine RBC 0 SEEN, Urine WBC 0 SEEN, Ur Squamous Epith Cells 0 SEEN, Urine Bacteria 0 SEEN, Urine Mucus 0 SEEN 03/25/21 15:43: Urine Opiates Screen POSITIVE H, Urine Methadone Screen NEGATIVE, Ur Barbiturates Screen NEGATIVE, Ur Phencyclidine Scrn NEGATIVE, Ur Amphetamines Screen POSITIVE H, U Methamphetamin-MDMA NEGATIVE, U Benzodiazepines Scrn NEGATIVE, Urine Cocaine Screen NEGATIVE, U Cannabinoids Screen POSITIVE H, Ur Drug Screen Comment Radiology Impression Chest X-Ray 03/25/21 18:31 IMPRESSION: No radiographic evidence of acute cardiopulmonary disease. at 1907 Reported and signed by: James Toscano MD Electronically Signed: James Toscano MD at 19:06 EDT Tel , Service support , Assessment & Plan Assessment/Plan (1) Acute pancreatitis: QUALIFIERS: Pancreatitis type: biliary Acute pancreatitis complication: unspecified Qualified Code(s): K85.10 - Biliary acute pancreatitis without necrosis or infection (2) Acute cholecystitis: (3) Tobacco use: PLAN: The patient is a 55 y/o M w/ PMHx: Chronic cannabis use, Tobacco use otherwise denies any prior medical history or routine medication usage who p resents to the [facility] ED on 03/25/21 with history of generalized fatigue, malaise, poor intake and nausea with weight loss over the last several weeks initially stating that his symptoms started following his last Pfizer vaccination 2 months prior however he notes since then intermittent abdominal discomfort, nausea and emesis which would yocasta but eventually recur prompting ED evaluation today prior however he had recurrent significant 10 out of 10 pain to the epigastric and right upper quadrant region prompting repeat ED evaluation. 1. Acute pancreatitis likely secondary to acute cholecystitis with possible choledocholithiasis w/ abdominal pain, N/V: Will admit to medical surgical floor, maintain on IVFs, NPO with bowel rest, PPI, IV/po pain control, trend lipase, CMP. Will obtain RUQ US given significant CT findings, FLP, denies alcohol use, discussed case with Dr. Avila who was consulted and will evaluate patient, will maintain on IV Zosyn therapy given concern for possible cholec ystitis awaiting now right upper quadrant ultrasound. 2. Significant weight loss, poor oral intake with suspected gastric ulcer versus possible neoplastic process: CT abdomen and pelvis with an abnormal gallbladder noted to be distended with probable cholelithiasis, wall thickening and pericholecystic fluid with recommended follow-up gallbladder ultrasound to assess for acute cholecystitis, suspicious findings for an ulcer in the gastric fundus posteriorly as well is an adjacent contour abnormality suggesting stricture/inflammation versus neoplastic process. Dr. Avila is consulted and will evaluate patient with likely need for future upper endoscopy. Will maintain on IV PPI and avoid any NSAID therapies. 3. Elevated BP without hypertensive diagnosis: Patient with elevated BP, possibly secondary to pain however patient during recent ED visit had elevated blood pressures above goal as well, suspect likely underlying history and once appropriate add oral regimen if necessary, as needed IV hydralazine in interim. 4. Tobacco Abuse: Encouraged cessation, inpatient consultation per RT, NR if desired. 5. Substance abuse: Patient with chronic cannabis usage, UDS with positive lacho abis as well as amphetamine and opiates however patient did recently receive opiates in the ED, unclear etiology for the amphetamine as patient denies any usage aside from cannabis. 6. DVT prophylaxis: SCDs, defer any chemoprophylaxis given patient's gastric findings. Charges/Coding Visit Charges Inpatient E&M: 70953 Init Hosp L3
--- NOTE | 2021-03-25 19:56 | US_ITS ---
HISTORY: Pancreatitis TECHNIQUE: Parker scale and color Doppler imaging was performed of the right upper quadrant. COMPARISON: CT abdomen and pelvis same day FINDINGS: # of images incl. paperwork: 170 LIVER: Heterogenous echotexture without focal lesion. 17.1 cm long axis GALLBLADDER: 1.7 cm shadowing calculus in the gallbladder neck. Gallbladder wall thickened to 9 mm without pericholecystic fluid. Sonographic Guthrie's sign reported positive. Small echogenic foci with comet tail artifacts along the anterior wall of the gallbladder. BILE DUCTS: The extrahepatic common duct measures 8 mm in AP diameter, which is abnormally dilated for the patient's age. PANCREAS: No acute abnormality of the visualized portion. RIGHT KIDNEY: 11.2 cm long axis. No hydronephrosis. Cortical and peripelvic cysts. US/Gallbladder IMPRESSION: Cholelithiasis and adenomyomatosis with sonographic findings of acute cholecystitis. at 2159 Reported and signed by: James Toscano MD Electronically Signed: James Toscano MD at 21:58 EDT Tel , Service support ,
--- NOTE | 2021-03-25 20:56 | EX.PCM.CON.S ---
Assessment & Plan Assessment/Plan (1) Acute cholecystitis: PLAN: This is a 55-year-old male with a presentation of generalized abdominal pain and 10 to 20 pound weight loss over the last 1 to 2 months. Clinically, he appears to have probable concurrent cholecystitis, pancreatitis, and gastric ulcer versus neoplasm. Patient does have a history of substance abuse so the etiology of the patient's pancreatitis is not lately clear. I recommend conservative management of the patient's pancreatitis followed by same?admission cholecystectomy with intraoperative cholangiogram followed by EGD (outpatient versus inpatient) ?A.m. CMP ?Follow-up right upper quadrant ultrasound results ?IV Zosyn ?Cholecystectomy with intraoperative cholangiogram once pancreatitis is resolving (2) Acute pancreatitis: QUALIFIERS: Pancreatitis type: biliary Acute pancreatitis complication: unspecified Qualified Code(s): K85.10 - Biliary acute pancreatitis without necrosis or infection PLAN: ?Initially keep n.p.o. with IV fluid hydration ?Trend lipase and abdominal exam (3) Gastric mass: PLAN: Neoplasm versus ulcer. ?Empiric PPI ?Plan for EGD (timing to be determined) (4) Intractable nausea and vomiting: PLAN: Likely secondary to all of the above, however, mechanical obstruction apparent due to gastric mass above. Once patient is ready for diet would recommend remaining on liquids. He will require endoscopic evaluation to better characterize this abnormality. HPI Consult Data Date of Consult: 03/25/21 HPI Narrative HPI Narrative: EFREM [place], is a 55 M who presents to [facility] ER with complaints of generalized abdominal pain and weight loss of approximately 20 pounds over the last 2 months. He states she has been unable to tolerate food and must vomit it back up. Occasionally he notes blood with this but only small amount. Today he attempted to eat a banana but this resulted in the same. He was actually seen yesterday in our ER for the same complaints, but left before formal discharge. ER work-up is notable for biochemistries that show a leukocytosis, mild transaminitis, and a lipase elevation of greater than thousand. Additionally, CT imaging is consistent with acute cholecystitis and there is a mid?body distortion of the patient's stomach concerning for ulcer versus neoplasm per radiology. Lastly the patient admits to recent drug use with both cannabis and amphetamines (the latter reported as using 4 days ago). [facility] Medical History no medical history Home Medications ondansetron 4 mg PO Q8H PRN PRN #10 tab 03/24/21 [Rx Last Taken Unknown] Allergy/AdvReac Type Severity Reaction Status Date / Time No Known Allergies Allergy Verified 03/25/21 17:08 Family History (Updated 03/25/21 @ 20:[address] Teresa Mckay MD) Mother Diabetes Family History other Surgical History no surgical history Social History household members: significant other and children Smoking Status: Current every day smoker tobacco type: cigarettes Smoking packs per day: 1 Smoking cigarettes per day: 20.0 alcohol intake: current alcohol intake frequency: holidays/special occasions only substance use type: marijuana Physical Exam Const alert and oriented x3 Constitutional Narrative: Patient is very anxious, somewhat uncooperative, and constantly states I know I am going to General Appearance: anxious HEENT normocephalic and head/scalp atraumatic Resp normal respiratory effort GI GI Narrative: Slender, nondistended, no scars, muscular core. Soft to palpation with tenderness across the right and left upper quadrants. Lab / Micro Data Result Diagrams: 03/25/21 15:32 03/25/21 15:32 Labs: Laboratory Results - last 24 hr 03/25/21 15:32: WBC 15.4 H, RBC 5.55, Hgb 16.8 H, Hct 49.9, MCV 89.9, MCH 30.3, MCHC 33.7, RDW Std Deviation 42.6, RDW Coeff of Dwaine 12.9, Plt Count 268, MPV 8.8, Immature Gran % (Auto) 0.400, Neut % (Auto) 74.4 H, Lymph % (Auto) 15.9 L, [place] % (Auto) 7.9, Eos % (Auto) 1.0, Baso % (Auto) 0.4, Absolute Neuts (auto) 11.5 H, Absolute Lymphs (auto) 2.45, Nucleated RBC % 0 03/25/21 15:32: Sodium 135 L, Potassium 4.1, Chloride 98, Carbon Dioxide 31.0, Anion Gap 6, BUN 5 L, Creatinine 0.76, Estim Creat Clear Calc 95.46, Est GFR (MDRD) Af Amer 138, Est GFR (MDRD) Non-Af 114, BUN/Creatinine Ratio 6.6 L, Glucose 117 H, Calcium 9.8, Total Bilirubin 0.60, AST 27, ALT 93 H, Alkaline Phosphatase 120 H, Total Protein 8.6 H, Albumin 4.0, Globulin 4.6 H, Albumin/Globulin Ratio 0.9, Lipase 1154 H 03/25/21 15:43: Urine Color Yellow, Urine Clarity Clear, Urine pH 7.0, Ur Specific [place] 1.015, Urine Protein 30 H, Urine Glucose (UA) Normal, Urine Ketones Negative, Urine Occult Blood 10 H, Urine Nitrite Negative, Urine Bilirubin Negative, Urine Urobilinogen Normal, Ur Leukocyte Esterase Negative, Urine RBC 0 SEEN, Urine WBC 0 SEEN, Ur Squamous Epith Cells 0 SEEN, Urine Bacteria 0 SEEN, Urine Mucus 0 SEEN 03/25/21 15:43: Urine Opiates Screen POSITIVE H, Urine Methadone Screen NEGATIVE, Ur Barbiturates Screen NEGATIVE, Ur Phencyclidine Scrn NEGATIVE, Ur Amphetamines Screen POSITIVE H, U Methamphetamin-MDMA NEGATIVE, U Benzodiazepines Scrn NEGATIVE, Urine Cocaine Screen NEGATIVE, U Cannabinoids Screen POSITIVE H, Ur Drug Screen Comment Radiology Impression Abdomen/Pelvis CT 03/25/21 17:14 IMPRESSION: Abnormal gallbladder distention with probable cholelithiasis, wall thickening and pericholecystic fluid. Recommend correlation with gallbladder ultrasound for acute cholecystitis. Findings suspicious for ulcer in the gastric fundus posteriorly. Adjacent contour abnormality suggests stricture, inflammatory versus neoplastic. Consider endoscopic correlation. Individualized dose optimization techniques were used for this CT. at 2015 Reported and signed by: James Toscano MD Electronically Signed: James Toscano MD at 20:14 EDT Tel , Service support , Chest X-Ray 03/25/21 18:31 IMPRESSION: No radiographic evidence of acute cardiopulmonary disease. at 1907 Reported and signed by: James Toscano MD Electronically Signed: James Toscano MD at 19:06 EDT Tel , Service support , Charges/Coding Visit Charges Inpatient E&M: 71545 Init Hosp L2
[2021-03-25 20:58] VITALS: BP 157/78; PULSE 71; RESP 16; TEMP 36.6; O2SAT 97
[2021-03-25 21:06] VITALS: BMI 20.2
[2021-03-25 21:25] VITALS: BP 165/96; PULSE 61; RESP 18; TEMP 37.1; O2SAT 100
[2021-03-25] MEDS: HYDROmorphone 0.5 MG/0.5 ML SYRINGE IV (22:07)
[2021-03-25] MEDS: 0.9% Saline Lock 10 ML Syringe IV (22:07)
[2021-03-25] MEDS: Temazepam 15 MG Capsule PO (22:08)
[2021-03-25 22:09] VITALS: BP 165/96; PULSE 61
[2021-03-25] MEDS: hydrALAZINE 20 MG/ML Vial 10 MG IV (22:09)
[2021-03-26] VITALS (10 sets, daily range): BP systolic 126–167; BP diastolic 72–109; PULSE 64–87; RESP 16–18; TEMP 36–36.8; O2SAT 95–100; BMI 20.1
--- NOTE | 2021-03-26 | GALL_PTH ---
PATIENT: EFREM OH MED LOC: MS2 U#:[id number] AGE/SX: 55/M ROOM: [facility] RE03/25/[address]: Dr. Josefina Hardy DO : 1965 BED: 1 DIS: 03/28/2021 SPEC #: [id number] RECD: 03/29/21 07:35 STATUS: BEVERLY REQ #: [id number] BRIAN: 03/26/21 00:[address]: Marcus Avila DEPT: SURGICAL PATHOLOGY RECD BY: Getachew Flynn ENTERED: 03/29/21 08:07 SP TYPE: GALLBLADDE OTHR DR: MD Dr. Josefina Domingo DO Dr. Michael Bortz, MD No Primary Care Phys Tissues: Gallbladder, NOS Procedures: Surgery Specimen Level III Comments: @ Ordering doctor for SUIII edited from to @ by PADMINI at 03/29/21 1414 @ Submitting doctor edited from to @ by RGOOD at 03/29/21 1414 HEADER OPERATION: Laparoscopic cholecystectomy with IOC PRE-OP DIAGNOSIS: Suspect gallstone pancreatitis with passing gallstone based on spontaneously resolving transaminitis TISSUE SUBMITTED: Gallbladder MICROSCOPIC DIAGNOSIS Gallbladder, cholecystectomy: Acute and chronic hemorrhagic and ulcerated cholecystitis and cholelithiasis. Reactive epithelial changes. One benign pericystic lymph node with reactive changes. BIN:jonathan 03/30/2021 MICROSCOPIC DESCRIPTION Slides are reviewed. GROSS DESCRIPTION Received is one container labeled with the patient's name and designated gallbladder. The specimen consists of a gallbladder measuring 9 cm in length and up to 3.5 cm in diameter. The external surface is pink-dillon, smooth and glistening for the most part. Focally it is granular, hemorrhagic and contains cautery artifact. The gallbladder contains a small amount of hemorrhagic bile and one brown, ovoid to irregular stone measuring in 1.5 cm in greatest dimension. The mucosa is congested and hemorrhagic. The gallbladder wall measures up to 1.5 cm in thickness. Also present close to the cystic duct is an ovoid nodule consistent with lymph node measuring 2 cm in greatest dimension. Order Booker sections from the gallbladder and the cystic duct are submitted in three cassettes as follows: 1 & 2 - gallbladder including cystic duct, 3 - lymph node. / Alix 03/29/2021 TC:2 [facility]: [id number]
--- NOTE | 2021-03-26 02:30 | PCS.PANDOC ---
PANDEMIC DOCUMENTATION INITIATED: Date: 01/18/2021 Time: 190
[2021-03-26] MEDS: 0.9% Saline Lock 10 ML Syringe IV ×2 (05:51→10:31)
[2021-03-26] MEDS: HYDROmorphone 0.5 MG/0.5 ML SYRINGE IV ×3 (05:52→22:58)
[2021-03-26 06:08] LABS: Absolute Lymphocyte Count 2.43 X10^3/uL (0.83-4.51); Absolute Neutrophil Count 9.4 X10^3/uL (2.0-7.7); Basophil# 0.07 X10^3/uL; Basophil% 0.5 % (0-1); Eosinophil# 0.15 X10^3/uL; Eosinophils% 1.1 % (0-5); Lymphocyte # 2.43 X10^3/ul (0.83-4.51); Mean Corpuscular Hgb 30.2 pg (27.0-32.0); Mean Corpuscular Volume 88.8 fL (80-94); Mean Platelet Vol. 8.8 fl (6.2-12.0); Monocyte# 1.43 X10^3/uL; Monocyte% 10.6 % (0-10); NRBC Flagged by Analyzer 0 % (0-5); Neutrophil # 9.37 X10^3/uL (2.7-7.7); Neutrophil % 69.5 % (47-70); Platelet Count 234 K/mm3 (150-450); RBC Distribution Width CV 13.2 % (11.6-14.6); RBC Distribution Width SD 42.8 fl (35.1-43.9); Red Blood Count 5.29 M/mm3 (4.6-6.2); White Blood Count 13.5 K/mm3 (4.4-11.0)
[2021-03-26 06:35] LABS: ALB/GLOB Ratio 0.8 RATIO (0.9-2.4); AST(SGOT) 28 U/L (15-37); Alanine Aminotransfer ALT/SGPT 73 U/L (16-61); Albumin, Serum 3.1 g/dL (3.2-5.0); Alkaline Phosphatase 104 U/L (45-117); Anion Gap 7 (5-15); BUN 6 mg/dL (7-18); BUN/Creat Ratio 8.9 RATIO (10-20); Calcium,Total 8.9 mg/dL (8.5-10.1); Chloride 102 mmol/L (98-107); Cholesterol 126 mg/dL (200); Creatinine, Serum 0.67 mg/dL (0.70-1.30); EST Glomerular Filtration Rate 131 mL/min (>60); Est Glom Filt Rate - Afr Amer 159 mL/min (>60); Estimated Creatinine Clearance 110.01 ml/min; Globulin 4.1 g/dL (2.2-4.2); Glucose 104 mg/dL (74-106); High Density Lipoprotein 39 mg/dL; Lipase 168 U/L (73-393); Potassium 3.7 mmol/L (3.5-5.1); Protein, Total 7.2 g/dL (6.4-8.2); Sodium Level 136 mmol/L (136-145); Triglycerides 51 mg/dL; Very Low Density Lipoprotein 10 mg/dL (5-40)
--- NOTE | 2021-03-26 07:33 | PN.SURG_ITS ---
Objective Data Objective Data Vital Signs: Vital Signs Temp Pulse Resp BP Pulse Ox 97.4 F L 87 16 134/81 H 100 03/26/21 04:00 03/26/21 04:00 03/26/21 04:00 03/26/21 04:00 03/26/21 06:48 Oxygen Delivery Method Room Air Weight: 134 lb 7.712 oz Body Mass Index (BMI) 20.2 Intake & Output: Intake and Output for Last 24 Hours 03/24/21 03/25/21 03/26/21 23:59 23:59 23:59 Intake Total 1450 / 1450 625 / 625 Balance 1450 / 1450 625 / 625 Lab / Micro Data Result Diagrams: 03/26/21 05:11 03/26/21 05:11 Labs: Laboratory Results - last 24 hr 03/25/21 15:32: WBC 15.4 H, RBC 5.55, Hgb 16.8 H, Hct 49.9, MCV 89.9, MCH 30.3, MCHC 33.7, RDW Std Deviation 42.6, RDW Coeff of Dwaine 12.9, Plt Count 268, MPV 8.8, Immature Gran % (Auto) 0.400, Neut % (Auto) 74.4 H, Lymph % (Auto) 15.9 L, [place] % (Auto) 7.9, Eos % (Auto) 1.0, Baso % (Auto) 0.4, Absolute Neuts (auto) 11.5 H, Absolute Lymphs (auto) 2.45, Nucleated RBC % 0 03/25/21 15:32: Sodium 135 L, Potassium 4.1, Chloride 98, Carbon Dioxide 31.0, Anion Gap 6, BUN 5 L, Creatinine 0.76, Estim Creat Clear Calc 95.46, Est GFR (MDRD) Af Amer 138, Est GFR (MDRD) Non-Af 114, BUN/Creatinine Ratio 6.6 L, Glucose 117 H, Calcium 9.8, Total Bilirubin 0.60, AST 27, ALT 93 H, Alkaline Phosphatase 120 H, Total Protein 8.6 H, Albumin 4.0, Globulin 4.6 H, Albumin/Globulin Ratio 0.9, Lipase 1154 H 03/25/21 15:43: Urine Color Yellow, Urine Clarity Clear, Urine pH 7.0, Ur Specific [place] 1.015, Urine Protein 30 H, Urine Glucose (UA) Normal, Urine Ketones Negative, Urine Occult Blood 10 H, Urine Nitrite Negative, Urine Bilirubin Negative, Urine Urobilinogen Normal, Ur Leukocyte Esterase Negative, Urine RBC 0 SEEN, Urine WBC 0 SEEN, Ur Squamous Epith Cells 0 SEEN, Urine Bacteria 0 SEEN, Urine Mucus 0 SEEN 03/25/21 15:43: Urine Opiates Screen POSITIVE H, Urine Methadone Screen NEGATIVE, Ur Barbiturates Screen NEGATIVE, Ur Phencyclidine Scrn NEGATIVE, Ur Amphetamines Screen POSITIVE H, U Methamphetamin-MDMA NEGATIVE, U Benzodiazepines Scrn NEGATIVE, Urine Cocaine Screen NEGATIVE, U Cannabinoids Screen POSITIVE H, Ur Drug Screen Comment 03/26/21 05:11: WBC 13.5 H, RBC 5.29, Hgb 16.0, Hct 47.0, MCV 88.8, MCH 30.2, MCHC 34.0, RDW Std Deviation 42.8, RDW Coeff of Dwaine 13.2, Plt Count 234, MPV 8.8, Immature Gran % (Auto) 0.300, Neut % (Auto) 69.5, Lymph % (Auto) 18.0 L, [place] % (Auto) 10.6 H, Eos % (Auto) 1.1, Baso % (Auto) 0.5, Absolute Neuts (auto) 9.4 H, Absolute Lymphs (auto) 2.43, Nucleated RBC % 0 03/26/21 05:11: Sodium 136, Potassium 3.7, Chloride 102, Carbon Dioxide 27.0, Anion Gap 7, BUN 6 L, Creatinine 0.67 L, Estim Creat Clear Calc 110.01, Est GFR (MDRD) Af Amer 159, Est GFR (MDRD) Non-Af 131, BUN/Creatinine Ratio 8.9 L, Glucose 104, Calcium 8.9, Total Bilirubin 0.90, AST 28, ALT 73 H, Alkaline Phosphatase 104, Total Protein 7.2, Albumin 3.1 L, Globulin 4.1, Albumin/Globulin Ratio 0.8 L, Triglycerides 51, Cholesterol 126, LDL Cholesterol 77, VLDL Cholesterol 10, HDL Cholesterol 39 L, Lipase 168 Radiography Diagnostic Testing: Radiology Impression Abdomen/Pelvis CT 03/25/21 17:14 IMPRESSION: Abnormal gallbladder distention with probable cholelithiasis, wall thickening and pericholecystic fluid. Recommend correlation with gallbladder ultrasound for acute cholecystitis. Findings suspicious for ulcer in the gastric fundus posteriorly. Adjacent contour abnormality suggests stricture, inflammatory versus neoplastic. Consider endoscopic correlation. Individualized dose optimization techniques were used for this CT. at 2015 Reported and signed by: James Toscano MD Electronically Signed: James Toscano MD at 20:14 EDT Tel , Service support , Chest X-Ray 03/25/21 18:31 IMPRESSION: No radiographic evidence of acute cardiopulmonary disease. at 1907 Reported and signed by: James Toscano MD Electronically Signed: James Toscano MD at 19:06 EDT Tel , Service support , Gallbladder Ultrasound 03/25/21 19:56 IMPRESSION: Cholelithiasis and adenomyomatosis with sonographic findings of acute cholecystitis. at 2159 Reported and signed by: James Toscano MD Electronically Signed: James Toscano MD at 21:58 EDT Tel , Service support ,
--- NOTE | 2021-03-26 09:08 | EKG12_ITS ---
Test Reason : SURGERY Blood Pressure : / mmHG Vent. Rate : 067 BPM Atrial Rate : 067 BPM P-R Int : 168 ms QRS Dur : 078 ms QT Int : 408 ms P-R-T Axes : 077 053 068 degrees QTc Int : 431 ms Normal sinus rhythm Septal infarct , age undetermined , cannot be excluded Abnormal ECG Confirmed by ISRAEL BEDOLLA, BASSAM ([id number]), food expeditor ANGELICA PLAZA ([id number]) on 03/31/2021 9:47:48 AM Referred By: AQUILES Confirmed By:BASSAM WOOD MD
--- NOTE | 2021-03-26 10:00 | CASEMGMT ---
SW spoke w/Hernán at [employer], someone from [employer] will speak w/pt tomorrow and give pt resources. MARTÍN Vogel
[2021-03-26] MEDS: 0.9% Normal Saline 1,000 ML 150 ML IV ×2 (10:32→20:35)
--- NOTE | 2021-03-26 10:34 | PN.HOSP_ITS ---
Subjective Subjective Patient reports that he is feeling a little bit better today. Plan is for the OR for a laparoscopic cholecystectomy today. EGD will be done in the future. Objective Data Objective Data Vital Signs: Vital Signs Temp Pulse Resp BP Pulse Ox 97.3 F L 64 18 141/87 H 99 03/26/21 08:48 03/26/21 08:48 03/26/21 08:48 03/26/21 08:48 03/26/21 08:48 Oxygen Delivery Method Room Air Weight: 61 kg Body Mass Index (BMI) 20.2 Intake & Output: Intake and Output for Last 24 Hours 03/24/21 03/25/21 03/26/21 23:59 23:59 23:59 Intake Total 1450 / 1450 1050 / 1050 Balance 1450 / 1450 1050 / 1050 Lab / Micro Data Result Diagrams: 03/26/21 05:11 03/26/21 05:11 Labs: Laboratory Results - last 24 hr 03/25/21 15:32: WBC 15.4 H, RBC 5.55, Hgb 16.8 H, Hct 49.9, MCV 89.9, MCH 30.3, MCHC 33.7, RDW Std Deviation 42.6, RDW Coeff of Dwaine 12.9, Plt Count 268, MPV 8.8, Immature Gran % (Auto) 0.400, Neut % (Auto) 74.4 H, Lymph % (Auto) 15.9 L, [place] % (Auto) 7.9, Eos % (Auto) 1.0, Baso % (Auto) 0.4, Absolute Neuts (auto) 11.5 H, Absolute Lymphs (auto) 2.45, Nucleated RBC % 0 03/25/21 15:32: Sodium 135 L, Potassium 4.1, Chloride 98, Carbon Dioxide 31.0, Anion Gap 6, BUN 5 L, Creatinine 0.76, Estim Creat Clear Calc 95.46, Est GFR (MDRD) Af Amer 138, Est GFR (MDRD) Non-Af 114, BUN/Creatinine Ratio 6.6 L, Glucose 117 H, Calcium 9.8, Total Bilirubin 0.60, AST 27, ALT 93 H, Alkaline Phosphatase 120 H, Total Protein 8.6 H, Albumin 4.0, Globulin 4.6 H, Albumin/Globulin Ratio 0.9, Lipase 1154 H 03/25/21 15:43: Urine Color Yellow, Urine Clarity Clear, Urine pH 7.0, Ur S pecific [place] 1.015, Urine Protein 30 H, Urine Glucose (UA) Normal, Urine K etones Negative, Urine Occult Blood 10 H, Urine Nitrite Negative, Urine Bilir ubin Negative, Urine Urobilinogen Normal, Ur Leukocyte Esterase Negative, Urine RBC 0 SEEN, Urine WBC 0 SEEN, Ur Squamous Epith Cells 0 SEEN, Urine Bacteria 0 SEEN, Urine Mucus 0 SEEN 03/25/21 15:43: Urine Opiates Screen POSITIVE H, Urine Methadone Screen NEGATIVE, Ur Barbiturates Screen NEGATIVE, Ur Phencyclidine Scrn NEGATIVE, Ur Amphetamines Screen POSITIVE H, U Methamphetamin-MDMA NEGATIVE, U Benzodiazepines Scrn NEGATIVE, Urine Cocaine Screen NEGATIVE, U Cannabinoids Screen POSITIVE H, Ur Drug Screen Comment 03/26/21 05:11: WBC 13.5 H, RBC 5.29, Hgb 16.0, Hct 47.0, MCV 88.8, MCH 30.2, MCHC 34.0, RDW Std Deviation 42.8, RDW Coeff of Dwaine 13.2, Plt Count 234, MPV 8.8, Immature Gran % (Auto) 0.300, Neut % (Auto) 69.5, Lymph % (Auto) 18.0 L, [place] % (Auto) 10.6 H, Eos % (Auto) 1.1, Baso % (Auto) 0.5, Absolute Neuts (auto) 9.4 H, Absolute Lymphs (auto) 2.43, Nucleated RBC % 0 03/26/21 05:11: Sodium 136, Potassium 3.7, Chloride 102, Carbon Dioxide 27.0, An ion Gap 7, BUN 6 L, Creatinine 0.67 L, Estim Creat Clear Calc 110.01, Est GFR (MDRD) Af Amer 159, Est GFR (MDRD) Non-Af 131, BUN/Creatinine Ratio 8.9 L, Glucose 104, Calcium 8.9, Total Bilirubin 0.90, AST 28, ALT 73 H, Alkaline Phosphatase 104, Total Protein 7.2, Albumin 3.1 L, Globulin 4.1, Albumin/Globulin Ratio 0.8 L, Triglycerides 51, Cholesterol 126, LDL Cholesterol 77, VLDL Cholesterol 10, HDL Cholesterol 39 L, Lipase 168 Radiography Diagnostic Testing: Radiology Impression Abdomen/Pelvis CT 03/25/21 17:14 IMPRESSION: Abnormal gallbladder distention with probable cholelithiasis, wall thickening and pericholecystic fluid. Recommend correlation with gallbladder ultrasound for acute cholecystitis. Findings suspicious for ulcer in the gastric fundus posteriorly. Adjacent contour abnormality suggests stricture, inflammatory versus neoplastic. Consider endoscopic correlation. Individualized dose optimization techniques were used for this CT. at 2015 Reported and signed by: James Toscano MD Electronically Signed: James Toscano MD at 20:14 EDT Tel , Service support , Chest X-Ray 03/25/21 18:31 IMPRESSION: No radiographic evidence of acute cardiopulmonary disease. at 1907 Reported and signed by: James Toscano MD Electronically Signed: James Toscano MD at 19:06 EDT Tel , Service support , Gallbladder Ultrasound 03/25/21 19:56 IMPRESSION: Cholelithiasis and adenomyomatosis with sonographic findings of acute cholecystitis. at 2159 Reported and signed by: James Toscano MD Electronically Signed: James Toscano MD at 21:58 EDT Tel , Service support , Physical Exam Const alert and oriented x3 Constitutional Narrative: Thin upper middle-aged white male lying in bed, appears older than stated age, no acute distress, nontoxic, fully clothed in street clothes Exam Limitations: no limitations Nutritional Appearance: thin HEENT head/scalp atraumatic, moist oral mucous membranes and oropharynx normal HEENT Narrative: Temporal wasting with decreased lean body mass Head and Scalp: normocephalic Mouth: oral and palatal mucosa normal Resp normal respiratory effort, no retractions, no use of accessory muscles and clear to auscultation bilaterally Resp Narrative: Somewhat diminished diffusely but clear Auscultation: Negative for crackles, rales, rhonchi or wheezes Cardio regular rate, regular rhythm, S1 normal heart sound, S2 normal heart sound, no murmurs, no rub, no gallops, no clicks and no JVD GI normal to inspection, nondistended, normoactive bowel sounds, soft to palpation and non-distended Palpation: tender epigastric and RUQ and guarding Extremity normal to inspection and no clubbing, cyanosis or edema Peripheral Pulses: Yes pulses 2+ throughout Neuro oriented x3, moves all extremities and no focal motor deficits Sensorium / Orientation: awake and alert Speech: speech normal Psych Mood & Affect: anxious Assessment & Plan Assessment/Plan (1) Acute pancreatitis: QUALIFIERS: Pancreatitis type: biliary Acute pancreatitis complication: unspecified Qualified Code(s): K85.10 - Biliary acute pancreatitis without necrosis or infection (2) Acute cholecystitis: (3) Gastric mass: (4) Transaminitis: PLAN: Acute pancreatitis -Lipase elevations may have been related to intractable nausea and vomiting and have now resolved -Peak lipase was 1154 and normalized quite quickly -Continue IV fluids -Liver enzymes have almost normalized Acute cholecystitis -N.p.o. -Continue IV fluids -Continue pain medicines for pain management -2 OR today for lap or cystic cholecystectomy -General surgery is following-appreciate input Gastric mass versus ulcer -Plan is for EGD in the future--> timing is unclear but may be done as an outpatient -We will use twice daily Protonix -General surgery is following and directing management with regards to this Severe malnutrition -Patient has had a 10 to 20 pound weight loss over the last 1 to 2 months and p.o. intake has been extremely poor -Dietitian to evaluate Elevated blood pressure -Patient does not carry a formal diagnosis of hypertension but blood pressures have been elevated -Question related to pain versus substance abuse versus actual hypertension -We will continue to monitor and if remains elevated consider adding an antihypertensive prior to discharge -As needed antihypertensives available for systolic greater than 160 Tobacco abuse -Recommend cessation -Nicotine replacement therapy if patient desires Polysubstance abuse -Patient with chronic cannabis use as well as amphetamines. -Tox was positive for opiates but he did receive opiates in the emergency dep artment -recommend cessation DVT prophylaxis -SCDs -We will start prophylactic dose Lovenox after surgery CODE STATUS -Full code Charges/Coding Visit Charges Inpatient E&M: 54318 Subs Hosp L2
--- NOTE | 2021-03-26 11:15 | CASEMGMT ---
IRMA KIRBY Face to Face with patient for initial transition planning/care coordination assessment. RN MIRTA introduced self and role at [facility]. Patient lying in bed, alert and oriented. Patient willing to participate in assessment and is able to answer all questions appropriately. Care providers, pharmacy, and demographics verified. Patient wishes to discharge home, denies need for home health at this time. Patient states he has no further needs or concerns at this time. CM to follow for discharge planning needs that may arise. PCP: no PCPMIRTA to provide list of PCPs Specialists: none Preferred Pharmacy: [facility] Insurance: [employer] Prescription Benefit: yes Living Will/HPOA: none LNOK: friend Living Arrangements: Patient lives alone in a 3rd floor apartment. Patient states he is independent and able to ambulate stairs. Transportation: Girlfriend or [employer] DME/HHC: Patient denies previous HHC or DME. Patient states he smokes 1/2 ppd of cigarettes and marijuana 2x per day. Patient states he last used meth 7 days ago. Patient would like resources and Miguel Angel with [facility] notified. Disposition Plan: Patient to discharge home with family support and follow-up plans in place. Germaine HAQ, RN, CM
--- NOTE | 2021-03-26 11:54 | PN.SURG_ITS ---
Subjective Subjective Patient seen and examined during AM rounds. He briefly greets me and states that he is feeling much better from last night. He denies any nausea or vomiting overnight. He confirms that he is not had anything to eat or drink since midnight and requests liquids if possible. Objective Data Objective Data Vital Signs: Vital Signs Temp Pulse Resp BP Pulse Ox 97.3 F L 64 18 141/87 H 99 03/26/21 08:48 03/26/21 08:48 03/26/21 08:48 03/26/21 08:48 03/26/21 08:48 Oxygen Delivery Method Room Air Weight: 134 lb 7.712 oz Body Mass Index (BMI) 20.2 Intake & Output: Intake and Output for Last 24 Hours 03/24/21 03/25/21 03/26/21 23:59 23:59 23:59 Intake Total 1450 / 1450 1210 / 1210 Balance 1450 / 1450 1210 / 1210 Lab / Micro Data Result Diagrams: 03/26/21 05:11 03/26/21 05:11 Labs: Laboratory Results - last 24 hr 03/25/21 15:32: WBC 15.4 H, RBC 5.55, Hgb 16.8 H, Hct 49.9, MCV 89.9, MCH 30.3, MCHC 33.7, RDW Std Deviation 42.6, RDW Coeff of Dwaine 12.9, Plt Count 268, MPV 8.8, Immature Gran % (Auto) 0.400, Neut % (Auto) 74.4 H, Lymph % (Auto) 15.9 L, [place] % (Auto) 7.9, Eos % (Auto) 1.0, Baso % (Auto) 0.4, Absolute Neuts (auto) 11.5 H, Absolute Lymphs (auto) 2.45, Nucleated RBC % 0 03/25/21 15:32: Sodium 135 L, Potassium 4.1, Chloride 98, Carbon Dioxide 31.0, Anion Gap 6, BUN 5 L, Creatinine 0.76, Estim Creat Clear Calc 95.46, Est GFR ( RD) Af Amer 138, Est GFR (MDRD) Non-Af 114, BUN/Creatinine Ratio 6.6 L, Glucose 117 H, Calcium 9.8, Total Bilirubin 0.60, AST 27, ALT 93 H, Alkaline Phosphatase 120 H, Total Protein 8.6 H, Albumin 4.0, Globulin 4.6 H, Albumin/Globulin Ratio 0.9, Lipase 1154 H 03/25/21 15:43: Urine Color Yellow, Urine Clarity Clear, Urine pH 7.0, Ur Specific [place] 1.015, Urine Protein 30 H, Urine Glucose (UA) Normal, Urine Ketones Negative, Urine Occult Blood 10 H, Urine Nitrite Negative, Urine Bilirubin Negative, Urine Urobilinogen Normal, Ur Leukocyte Esterase Negative, Urine RBC 0 SEEN, Urine WBC 0 SEEN, Ur Squamous Epith Cells 0 SEEN, Urine Bacteria 0 SEEN, Urine Mucus 0 SEEN 03/25/21 15:43: Urine Opiates Screen POSITIVE H, Urine Methadone Screen NEGATIVE, Ur Barbiturates Screen NEGATIVE, Ur Phencyclidine Scrn NEGATIVE, Ur Amphetamines Screen POSITIVE H, U Methamphetamin-MDMA NEGATIVE, U Benzodiazepi kian Scrn NEGATIVE, Urine Cocaine Screen NEGATIVE, U Cannabinoids Screen POSITIVE H, Ur Drug Screen Comment 03/26/21 05:11: WBC 13.5 H, RBC 5.29, Hgb 16.0, Hct 47.0, MCV 88.8, MCH 30.2, MCHC 34.0, RDW Std Deviation 42.8, RDW Coeff of Dwaine 13.2, Plt Count 234, MPV 8.8, Immature Gran % (Auto) 0.300, Neut % (Auto) 69.5, Lymph % (Auto) 18.0 L, [place] % (Auto) 10.6 H, Eos % (Auto) 1.1, Baso % (Auto) 0.5, Absolute Neuts (auto) 9.4 H, Absolute Lymphs (auto) 2.43, Nucleated RBC % 0 03/26/21 05:11: Sodium 136, Potassium 3.7, Chloride 102, Carbon Dioxide 27.0, Anion Gap 7, BUN 6 L, Creatinine 0.67 L, Estim Creat Clear Calc 110.01, Est GFR (MDRD) Af Amer 159, Est GFR (MDRD) Non-Af 131, BUN/Creatinine Ratio 8.9 L, Glucose 104, Calcium 8.9, Total Bilirubin 0.90, AST 28, ALT 73 H, Alkaline Phosphatase 104, Total Protein 7.2, Albumin 3.1 L, Globulin 4.1, Albumin/Globulin Ratio 0.8 L, Triglycerides 51, Cholesterol 126, LDL Cholesterol 77, VLDL Cholesterol 10, HDL Cholesterol 39 L, Lipase 168 03/26/21 05:11: Hemoglobin A1c 5.0 Radiography Diagnostic Testing: Radiology Impression Abdomen/Pelvis CT 03/25/21 17:14 IMPRESSION: Abnormal gallbladder distention with probable cholelithiasis, wall thickening and pericholecystic fluid. Recommend correlation with gallbladder ultrasound for acute cholecystitis. Findings suspicious for ulcer in the gastric fundus posteriorly. Adjacent contour abnormality suggests stricture, inflammatory versus neoplastic. Consider endoscopic correlation. Individualized dose optimization techniques were used for this CT. at 2015 Reported and signed by: James Toscano MD Electronically Signed: James Toscano MD at 20:14 EDT Tel , Service support , Chest X-Ray 03/25/21 18:31 IMPRESSION: No radiographic evidence of acute cardiopulmonary disease. at 1907 Reported and signed by: James Toscano MD Electronically Signed: James Toscano MD at 19:06 EDT Tel , Service support , Gallbladder Ultrasound 03/25/21 19:56 IMPRESSION: Cholelithiasis and adenomyomatosis with sonographic findings of acute cholecystitis. at 2159 Reported and signed by: James Toscano MD Electronically Signed: James Toscano MD at 21:58 EDT Tel , Service support , Physical Exam Const oriented x3 and no apparent distress Resp normal respiratory effort GI GI Narrative: Patient's abdomen is nondistended, soft, focally tender in the right upper quadrant. There does not seem to be any tenderness in the epigastrium palpation. Assessment & Plan Assessment/Plan (1) Transaminitis: PLAN: Suspect gallstone pancreatitis with passing gallstone based on spontaneously resolving transaminitis. Planning for cholecystectomy with intraoperative cholangiogram to better evaluate biliary tree today. (2) Acute pancreatitis: QUALIFIERS: Pancreatitis type: biliary Acute pancreatitis complic ation: unspecified Qualified Code(s): K85.10 - Biliary acute pancreatitis without necrosis or infection PLAN: Pancreatitis appears to be rapidly resolving with no epigastric pain and lipase now within normal limits. Favor gallstone pancreatitis as etiology, but patient has a nickel history that includes other possible causes. Given the resolution of his lipase, I would like to plan to resume a diet following surgery today. (3) Acute cholecystitis: PLAN: Patient's right upper quadrant ultrasound confirmed CT findings consistent with cholecystitis?given thickened gallbladder wall and large gallstones. Clinically patient has cholecystitis with focal right upper quadrant tenderness. Planning for cholecystectomy with intraoperative cholangiogram today. (4) Gastric mass: PLAN: Radiology favors ulcer versus neoplastic process. Planning to perform EGD with biopsies as needed later in patient's admission. Given patient's solids intolerance, we will plan to resume a diet with liquids and protein supplementation. (5) Intractable nausea and vomiting: PLAN: Most likely secondary to mechanical obstruction due to gastric mass above. Certainly not helped by pancreatitis and cholecystitis. When reinitiated diet we will plan for liquids with protein supplementation. EGD with biopsies as above. Charges/Coding Visit Charges Inpatient E&M: 59633 Subs Hosp L2
--- NOTE | 2021-03-26 17:58 | RAD_ITS ---
HISTORY: LAP ANNMARIE EXAMINATION/TECHNIQUE: FL Cholangiogram and/or Pancreatography OR: Single fluoroscopic run with 51 images were provided for review. Total Fluoroscopic Time: 28.1 seconds AND # of Fluoroscopic Images: 51 OR Radiation dosage index: 7.03mGy COMPARISON: Gallbladder ultrasound March 25 2021 FINDINGS: Contrast noted in the bowel on initial image. Distal cystic duct appears cannulated with multiple gallbladder fossa surgical clips. Additional surgical clip projects over the right upper liver. Upon injection there is distal filling of the common duct with blush of contrast into duodenum. RAD/Cholangiogram/ O R,Initial IMPRESSION: Fluoroscopic support for intraoperative cholangiogram. Please refer to operative report for real-time findings. at 0331 Reported and signed by: Vish Epps MD Electronically Signed: Vish Epps MD at 3:30 EDT Tel , Service support ,
[2021-03-26] MEDS: Bupivacaine Mpf 0.5% 30 ML VIAL (18:06)
--- NOTE | 2021-03-26 19:51 | PCM.OPRPT ---
Problems Associated Problem List Diagnoses (1) Transaminitis: (2) Acute cholecystitis: (3) Acute pancreatitis: Report of Operation Date of Procedure: 03/26/21 Pre-Operative Diagnosis: 1. Acute cholecystitis 2. Acute pancreatitis Post-Operative Diagnosis: 1. acute?on?chronic cholecystitis 2. Acute pancreatitis Surgery/Procedure Performed:: Laparoscopic cholecystectomy with intraoperative cholangiogram Description of Surgical Findings:: ?Severely edematous gallbladder wall ?Short cystic duct flowing perpendicularly into the common bile duct ?Cholangiogram findings: Anterograde flow into the duodenum without filling defect/retrograde filling of the common hepatic and right hepatic ducts. Surgeon: Marcus Avila tracer lathe set up operator: Sandra Melgar Type of Anesthesia: General/Supplemental Anesthesiologist: Kirk Gonzalez Drains: None Estimated Blood Loss (mL): 100 Description of Procedure: After proper identification in the preoperative holding area, the patient was brought to the operating room where positioned supine on the operating room table. Preoperatively SCDS were connected and antibiotics were previously administered on the floor. General anesthesia was then induced. Patient's abdomen was prepped and draped in usual sterile fashion. A formal timeout was conducted to confirm both patient and the procedure. Procedure was begun with a supraumbilical incision which was extended deeply down to the level of the fascia. The fascia was elevated and incised, as well as the peritoneum. A finger sweep was performed to ensure there were no underlying adhesions and a 12 mm balloon trocar was inserted. Pneumoperitoneum was established at 15 mmHg. 3 additional trochars were placed in the epigastrium (12 mm) and in the right upper quadrant (2 x 5 mm). Inspection of the peritoneum revealed no inadvertent injury to the viscera below. The gallbladder was visualized with severe inflammation and distention. There was also evidence of simple abdominal ascites likely owing to his resolving pancreatitis. The gallbladder fundus was then grasped with a toothed grasper and elevated cephalad. Then, using careful dissection, the peritoneum was opened with electrocautery and the structures of the hepatocystic triangle were delineated. There appeared to be a very short cystic duct adjacent to more medial cyst anterior cystic artery. The cystic duct was singly clipped distally and partially transected. Then a 14 [place] angiocatheter was placed in the epigastrium under laparoscopic vision and a cholangiocatheter was fed through the angiocatheter and placed into the cystic duct. After it was clipped in place flow was confirmed and the cholangiogram was obtained. Cholangiogram showed antegrade flow into the common bile duct and duodenum without filling defect. There is also retrograde flow into the common hepatic duct and partial filling of the right hepatic duct. Satisfied with this result, the retention clip was removed and the cholangiocatheter was withdrawn. The cystic duct was then doubly clipped proximally and completely divided. The cystic artery was doubly clipped and divided and like manner. I then used blunt dissection to approach the hilar plate where I eventually encountered a posterior cystic artery which I doubly clipped and divided. Further approaching the hilar plate there appeared to be a hepatic artery diving deep towards the liver and possibly sending off a aberrant branch towards the gallbladder. The inflammation in this region was dense and the gallbladder mobility was difficult with the severe distention. I transition to a dome?down approach and the liver from the edematous gallbladder along the gallbladder fossa. During manipulation of the gallbladder at this point there was a small rent made in the gallbladder wall which resulted in some spillage of bile and local contamination which was suctioned free of the peritoneum before a grasper was applied to close this hole. With this top-down approach I was able to better define the plane between the gallbladder and the liver and I applied electrocautery to this plane. During this division, I did come across a small artery going directly into the gallbladder wall which I quickly clipped with 2 titanium clips. To guard against any further bleeding I elected to leave a small portion of the back wall of the gallbladder on the gallbladder fossa and cauterized the inner mucosa. The gallbladder was then completely removed from the gallbladder fossa with the use of electrocautery. Selective electrocautery was used to obtain hemostasis in the gallbladder fossa. The gallbladder was placed in an Endo Catch bag and removed from the peritoneum via the subxiphoid port after sharply enlarging it to double its original size. Morison's pouch was irrigated and the effluent was suctioned free of the peritoneum. Hemostasis was again confirmed. Pneumoperitoneum was evacuated and the fascia of the 12 mm port sites was closed with #1 Vicryl in a [id number] fashion. A total of 26 mL of half percent bupivacaine anesthetic was injected at the port sites for postoperative pain control. The skin of each port site was then closed in subcuticular fashion using 4-0 Monocryl. Steri-Strips and OpSite bandages were applied as dressings. Patient tolerated the procedure well without any apparent complications. On emergence from their anesthetic the patient was taken to PACU for ongoing recovery. Complications Mild, local bile spillage from a rent in the gallbladder wall that was suctioned free of the peritoneum Admit VTE Documentation VTE Mechan Device Prophylaxis: SCD's Procedures Digestive [id number]: [id number] Laparo cholecystectomy/graph
[2021-03-26 22:14] LABS: Absolute Lymphocyte Count 1.45 X10^3/uL (0.83-4.51); Absolute Neutrophil Count 11.9 X10^3/uL (2.0-7.7); Basophil# 0.06 X10^3/uL; Basophil% 0.4 % (0-1); Eosinophil# 0.06 X10^3/uL; Eosinophils% 0.4 % (0-5); Hematocrit 44.7 % (40-54); Lymphocyte # 1.45 X10^3/ul (0.83-4.51); Lymphocyte % 9.9 % (19-41); Mean Corp Hgb Conc 33.6 g/dL (32-36); Mean Corpuscular Hgb 30.4 pg (27.0-32.0); Mean Corpuscular Volume 90.7 fL (80-94); Mean Platelet Vol. 8.6 fl (6.2-12.0); Monocyte# 1.09 X10^3/uL; Monocyte% 7.5 % (0-10); NRBC Flagged by Analyzer 0 % (0-5); Neutrophil # 11.91 X10^3/uL (2.7-7.7); Neutrophil % 81.4 % (47-70); Platelet Count 239 K/mm3 (150-450); RBC Distribution Width CV 13.1 % (11.6-14.6); RBC Distribution Width SD 43.9 fl (35.1-43.9); Red Blood Count 4.93 M/mm3 (4.6-6.2); White Blood Count 14.6 K/mm3 (4.4-11.0)
[2021-03-27 01:03] VITALS: BP 126/72; PULSE 72; RESP 16; TEMP 36.7; O2SAT 97
[2021-03-27] MEDS: HYDROmorphone 0.5 MG/0.5 ML SYRINGE IV ×3 (03:50→12:58)
[2021-03-27] MEDS: 0.9% Normal Saline 1,000 ML 150 ML IV ×2 (03:52→10:49)
[2021-03-27 03:58] VITALS: BP 134/76; PULSE 75; RESP 18; TEMP 36.9; O2SAT 98
[2021-03-27 08:11] VITALS: O2SAT 97
--- NOTE | 2021-03-27 08:26 | PCM.PN.SRG ---
Subjective Subjective Patient complaining of significant muscle spasms today. No flatus no bowel movements Objective Data Objective Data Patient has voluntary guarding. Dressings are dry. Vital Signs: Vital Signs Temp Pulse Resp BP Pulse Ox 98.4 F 75 18 134/76 H 97 03/27/21 03:58 03/27/21 03:58 03/27/21 03:58 03/27/21 03:58 03/27/21 08:11 Oxygen Delivery Method Room Air Weight: 136 lb 3.931 oz Body Mass Index (BMI) 20.1 Intake & Output: Intake and Output for Last 24 Hours 03/25/21 03/26/21 03/27/21 23:59 23:59 23:59 Intake Total 1450 / 1450 2370 / 2970 2300 / 2300 Output Total 300 / 300 Balance 1450 / 1450 2370 / 2670 1999 Medical Nutrition Assessment Dietitian: Malnutrition Criteria Met Start: 03/26/21 12:36 Freq: Status: Active Protocol: Document 03/26/21 12:36 SLA (Rec: 03/26/21 12:36 SLA [id number]) Nutrition Malnutrition Evidence of Malnutrition Exists Yes Malnutrition (severe): Acute Illness/Injury Evidenced By Suboptimal Energy Intake ( Severe),Weight Loss (Severe) Clinical Problem Acute Disease or Injury Related Malnutrition Etiology related to acute gallstone pancreatitis w/ nausea/ vomiting and inability to consume adequate letha/pro to meet estimated nutritional needs Signs/Symptoms as evidenced by 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 Status Active Problem Recommendation Dietitian Recommendations/Changes As medically able, rec diet as tolerated to Regular diet Rec 8 oz ensure clear w/ meals for increased calories/ protein if consumed. Lab / Micro Data Result Diagrams: 03/26/21 21:57 03/26/21 05:11 Labs: Laboratory Results - last 24 hr 03/26/21 05:11: Hemoglobin A1c 5.0 03/26/21 21:57: WBC 14.6 H, RBC 4.93, Hgb 15.0, Hct 44.7, MCV 90.7, MCH 30.4, MCHC 33.6, RDW Std Deviation 43.9, RDW Coeff of Dwaine 13.1, Plt Count 239, MPV 8.6, Immature Gran % (Auto) 0.400, Neut % (Auto) 81.4 H, Lymph % (Auto) 9.9 L, [place] % (Auto) 7.5, Eos % (Auto) 0.4, Baso % (Auto) 0.4, Absolute Neuts (auto) 11.9 H, Absolute Lymphs (auto) 1.45, Nucleated RBC % 0 Radiography Diagnostic Testing: Radiology Impression Cholangiogram 03/26/21 17:58 IMPRESSION: Fluoroscopic support for intraoperative cholangiogram. Please refer to operative report for real-time findings. at 0331 Reported and signed by: Vish Epps MD Electronically Signed: Vish Epps MD at 3:30 EDT Tel , Service support , Assessment & Plan Assessment/Plan (1) Acute cholecystitis: PLAN: Postoperative day #1. We will try to get his pain under control. Labs are pending as of yet.
[2021-03-27 08:38] LABS: ALB/GLOB Ratio 0.7 RATIO (0.9-2.4); AST(SGOT) 33 U/L (15-37); Alanine Aminotransfer ALT/SGPT 61 U/L (16-61); Albumin, Serum 2.6 g/dL (3.2-5.0); Alkaline Phosphatase 82 U/L (45-117); Anion Gap 4 (5-15); BUN 7 mg/dL (7-18); BUN/Creat Ratio 11.5 RATIO (10-20); Calcium,Total 8.1 mg/dL (8.5-10.1); Chloride 105 mmol/L (98-107); Creatinine, Serum 0.61 mg/dL (0.70-1.30); EST Glomerular Filtration Rate 148 mL/min (>60); Est Glom Filt Rate - Afr Amer 178 mL/min (>60); Estimated Creatinine Clearance 122.42 ml/min; Globulin 3.7 g/dL (2.2-4.2); Glucose 91 mg/dL (74-106); Potassium 3.8 mmol/L (3.5-5.1); Protein, Total 6.3 g/dL (6.4-8.2); Sodium Level 137 mmol/L (136-145)
[2021-03-27] MEDS: 0.9% Saline Lock 10 ML Syringe IV (08:50)
[2021-03-27 08:55] VITALS: BP 130/73; PULSE 77; RESP 18; TEMP 36.8; O2SAT 99
[2021-03-27] MEDS: oxyCODONE 5 MG Tablet 10 MG PO ×3 (10:28→20:25)
--- NOTE | 2021-03-27 10:31 | NURSING ---
Walked in [place] x1 with DELONTE Aguilar.
--- NOTE | 2021-03-27 13:30 | PN.HOSP_ITS ---
Subjective Subjective Patient is complaining of horrible abdominal pain states is like spasm. Indicates the Dr. Whitmore was just in the room. Patient is yelling at me about his pain. He is not apologetic when I try to explain how I can try to help him. Objective Data Objective Data Vital Signs: Vital Signs Temp Pulse Resp BP Pulse Ox 98.2 F 77 18 130/73 H 99 03/27/21 08:55 03/27/21 08:55 03/27/21 08:55 03/27/21 08:55 03/27/21 08:55 Oxygen Delivery Method Room Air Weight: 61.8 kg Body Mass Index (BMI) 20.1 Intake & Output: Intake and Output for Last 24 Hours 03/25/21 03/26/21 03/27/21 23:59 23:59 23:59 Intake Total 1450 / 1450 2370 / 2970 3650 / 3650 Output Total 300 / 300 Balance 1450 / 1450 2370 / 2670 3350 / 3350 Medical Nutrition Assessment Dietitian: Malnutrition Criteria Met Start: 03/26/21 12:36 Freq: Status: Active Protocol: Document 03/26/21 12:36 [facility] (Rec: 03/26/21 12:36 [facility] [id number]) Nutrition Malnutrition Evidence of Malnutrition Exists Yes Malnutrition (severe): Acute Illness/Injury Evidenced By Suboptimal Energy Intake ( Severe),Weight Loss (Severe) Clinical Problem Acute Disease or Injury Related Malnutrition Etiology related to acute gallstone pancreatitis w/ nausea/ vomiting and inability to consume adequate letha/pro to meet estimated nutritional needs Signs/Symptoms as evidenced 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 Lab / Micro Data Result Diagrams: 03/26/21 21:57 03/27/21 08:00 Labs: Laboratory Results - last 24 hr 03/26/21 21:57: WBC 14.6 H, RBC 4.93, Hgb 15.0, Hct 44.7, MCV 90.7, MCH 30.4, MCHC 33.6, RDW Std Deviation 43.9, RDW Coeff of Dwaine 13.1, Plt Count 239, MPV 8.6, Immature Gran % (Auto) 0.400, Neut % (Auto) 81.4 H, Lymph % (Auto) 9.9 L, [place] % (Auto) 7.5, Eos % (Auto) 0.4, Baso % (Auto) 0.4, Absolute Neuts (auto) 11.9 H, Absolute Lymphs (auto) 1.45, Nucleated RBC % 0 03/27/21 08:00: Sodium 137, Potassium 3.8, Chloride 105, Carbon Dioxide 28.0, Anion Gap 4 L, BUN 7, Creatinine 0.61 L, Estim Creat Clear Calc 122.42, Est GFR (MDRD) Af Amer 178, Est GFR (MDRD) Non-Af 148, BUN/Creatinine Ratio 11.5, Glucose 91, Calcium 8.1 L, Total Bilirubin 0.60, AST 33, ALT 61, Alkaline Phosphatase 82, Total Protein 6.3 L, Albumin 2.6 L, Globulin 3.7, Albumin/Globulin Ratio 0.7 L Radiography Diagnostic Testing: Radiology Impression Cholangiogram 03/26/21 17:58 IMPRESSION: Fluoroscopic support for intraoperative cholangiogram. Please refer to operative report for real-time findings. at 0331 Reported and signed by: Vish Epps MD Electronically Signed: Vish Epps MD at 3:30 EDT Tel , Service support , Physical Exam Const alert, oriented x3 and average body habitus Constitutional Narrative: Thin upper middle-aged white male lying in bed, appears older than stated age, appears uncomfortable but nontoxic Exam Limitations: no limitations Nutritional Appearance: thin HEENT head/scalp atraumatic, moist oral mucous membranes and oropharynx normal Head and Scalp: normocephalic Resp normal respiratory effort, no retractions, no use of accessory muscles and clear to auscultation bilaterally Resp Narrative: Somewhat diminished diffusely but clear Auscultation: Negative for crackles, rales, rhonchi or wheezes Cardio regular rate, regular rhythm, S1 normal heart sound, S2 normal heart sound, no m urmurs, no rub, no gallops, no clicks and no JVD GI normal to inspection, nondistended, normoactive bowel sounds, soft to palpation and non-distended GI Narrative: Tenderness most notably at the epigastrium and right upper quadrant area, incision dressings are clean dry and intact with no drainage on current incisions Palpation: tender epigastric and RUQ and guarding Extremity normal to inspection and no clubbing, cyanosis or edema Peripheral Pulses: Yes pulses 2+ throughout Neuro oriented x3, moves all extremities and no focal motor deficits Sensorium / Orientation: awake and alert Speech: speech normal Psych Psych Narrative: Patient agitated Assessment & Plan Assessment/Plan (1) Acute pancreatitis: QUALIFIERS: Pancreatitis type: biliary Acute pancreatitis complication: unspecified Qualified Code(s): K85.10 - Biliary acute pancreatitis without necrosis or infection (2) Acute cholecystitis: (3) Gastric mass: (4) Transaminitis: PLAN: Acute pancreatitis -Resolved Acute cholecystitis -Okay to advance to full liquids -Increase Oxy with pain patient is having -DC IV fluids -Likely okay for discharge once patient has pain control -Would not discharge with more than 2 days of narcotics for pain -General surgery is following-appreciate input Gastric mass versus ulcer -Plan is for EGD in the future--> plan for discharge with follow-up at Dr. Avila's office in 7 to 10 days -Continue twice daily Protonix--> change to oral -General surgery is following and directing management with regards to this Severe malnutrition -Patient has had a 10 to 20 pound weight loss over the last 1 to 2 months and p.o. intake has been extremely poor -Dietitian to evaluate Elevated blood pressure -Patient does not carry a formal diagnosis of hypertension but blood pressures have been elevated -? related to pain versus substance abuse versus actual hypertension -We will continue to monitor and if remains elevated consider recommending follow-up with PCP to reassess in an outpatient setting -As needed antihypertensives available for systolic greater than 160 Tobacco abuse -Recommend cessation -Nicotine replacement therapy if patient desires Polysubstance abuse -Patient with chronic cannabis use as well as amphetamines. -Tox was positive for opiates but he did receive opiates in the emergency depa rtment -recommend cessation -Suspect pain be more difficult to control with his history of polysubstance abuse DVT prophylaxis -SCDs -Start prophylactic Lovenox CODE STATUS -Full code Charges/Coding Visit Charges Inpatient E&M: 15376 Subs Hosp L2
[2021-03-27 15:05] VITALS: BP 130/81; PULSE 74; RESP 20; TEMP 36.7; O2SAT 96
[2021-03-27] MEDS: Enoxaparin 40 MG/0.4 ML Syringe SC (15:32)
--- NOTE | 2021-03-27 16:28 | NURSING ---
Pt states the oxycodone has helped his pain and does not have any pain any more. pt is asking if he could go home now. Dr. Hardy aware via [employer], awaiting response.
--- NOTE | 2021-03-27 17:18 | NURSING ---
this nurse is aware of Vital Signs that were taken today at 1502 by Lyubov MARTEL
[2021-03-27] MEDS: Pantoprazole Sodium 40 MG Tablet PO (20:24)
[2021-03-27 21:00] VITALS: BP 119/72; PULSE 72; RESP 18; TEMP 36.8; O2SAT 98
[2021-03-28 02:07] VITALS: BP 131/83; PULSE 74; RESP 18; TEMP 36.8; O2SAT 95
[2021-03-28 05:45] LABS: Absolute Lymphocyte Count 2.59 X10^3/uL (0.83-4.51); Absolute Neutrophil Count 5.4 X10^3/uL (2.0-7.7); Basophil# 0.09 X10^3/uL; Eosinophil# 0.33 X10^3/uL; Eosinophils% 3.5 % (0-5); Hematocrit 40.4 % (40-54); Hemoglobin 13.8 g/dL (13.0-16.5); Lymphocyte # 2.59 X10^3/ul (0.83-4.51); Lymphocyte % 27.6 % (19-41); Mean Corp Hgb Conc 34.2 g/dL (32-36); Mean Corpuscular Hgb 30.9 pg (27.0-32.0); Mean Corpuscular Volume 90.4 fL (80-94); Mean Platelet Vol. 8.9 fl (6.2-12.0); Monocyte# 0.98 X10^3/uL; Monocyte% 10.4 % (0-10); NRBC Flagged by Analyzer 0 % (0-5); Neutrophil # 5.37 X10^3/uL (2.7-7.7); Neutrophil % 57.2 % (47-70); Platelet Count 207 K/mm3 (150-450); RBC Distribution Width CV 13.2 % (11.6-14.6); RBC Distribution Width SD 43.1 fl (35.1-43.9); Red Blood Count 4.47 M/mm3 (4.6-6.2); White Blood Count 9.4 K/mm3 (4.4-11.0)
[2021-03-28 06:01] LABS: ALB/GLOB Ratio 0.7 RATIO (0.9-2.4); AST(SGOT) 28 U/L (15-37); Alanine Aminotransfer ALT/SGPT 59 U/L (16-61); Albumin, Serum 2.7 g/dL (3.2-5.0); Alkaline Phosphatase 80 U/L (45-117); Anion Gap 5 (5-15); BUN 7 mg/dL (7-18); BUN/Creat Ratio 11.1 RATIO (10-20); Calcium,Total 8.7 mg/dL (8.5-10.1); Chloride 105 mmol/L (98-107); Creatinine, Serum 0.63 mg/dL (0.70-1.30); EST Glomerular Filtration Rate 142 mL/min (>60); Est Glom Filt Rate - Afr Amer 172 mL/min (>60); Estimated Creatinine Clearance 118.53 ml/min; Globulin 4.1 g/dL (2.2-4.2); Glucose 107 mg/dL (74-106); Potassium 3.7 mmol/L (3.5-5.1); Protein, Total 6.8 g/dL (6.4-8.2); Sodium Level 139 mmol/L (136-145)
[2021-03-28] MEDS: oxyCODONE 5 MG Tablet 10 MG PO (06:38)
--- NOTE | 2021-03-28 08:11 | DS.PCM_ITS ---
Providers Date of Admission: 03/25/21 Primary Care Physician: Lena Primary Care Phys Consultations 03/26/21 00:19 Consult: General Surgery Routine Consulting Provider: Marcus Avila Reason for Consult: Acute cholecystitis, ? choledoch, ? gastric mass/ulcer EMERGENT Consult: No MD Notified: Yes Date Notified: 03/25/21 Time Notified: 20:40 Method of Notification: talked to him. Reason For Visit: ACUTE PANCREATITIS Diagnosis Discharge Diagnosis (1) Acute pancreatitis: Status: Acute Code(s): K85.90 - Acute pancreatitis without necrosis or infection, unspecified Qualifiers: Acute pancreatitis complication: unspecified Pancreatitis type: biliary Qualified Code(s): K85.10 - Biliary acute pancreatitis without necrosis or infection (2) Acute cholecystitis: Status: Acute Code(s): K81.0 - Acute cholecystitis (3) Gastric mass: Status: Acute Code(s): K31.89 - Other diseases of stomach and duodenum (4) Transaminitis: Status: Acute Code(s): R74.01 - Elevation of levels of liver transaminase levels Medications at Discharge Home Medications ondansetron 4 mg PO Q8H PRN PRN #10 tab 03/24/21 hydrocodone-acetaminophen 1 tab PO TID PRN 2 Days #6 tab 03/28/21 pantoprazole 40 mg PO BID #60 tab 03/28/21 Hospital Course Operations cholecystecomy Summary of Care Provided Minutes Spent on Discharge: 36 Hospital Course: Mr. Man is a 55-year-old white male who presented to the emergency department at [facility] on 03/25/2021 with the chief complaint of abdominal pain in the epigastrium and right upper quadrant as well as weight loss. On admission he reported he had generalized fatigue, malaise, poor p.o. intake and nausea with weight loss that had been persistent over the last several weeks prior to admission and he feels that the symptoms started after his Pfizer vaccination 2 months prior. Since then he had intermittent abdominal discomfort, nausea, and emesis which would yocasta but eventually recur prompting ED evaluation on the day of admission. He was complaining of 10 out of 10 pain in the right upper quadrant and epigastric region on admission. In the emergency department his vital signs were stable his CBC showed a mildly elevated white count at 15.4 but was otherwise normal. His BMP was unrema rkable. His LFTs were unremarkable. A lipase was 1154. His chest x-ray showed no acute cardiopulmonary findings. Given his abdominal pain a CT of his abdomen and pelvis was performed and noted gallbladder distention with probable cholelithiasis, wall thickening, and pericholecystic fluid. There was also suspicious finding for an ulcer versus mass in the gastric fundus posteriorly as well as adjacent contour abnormality suggesting a stricture or inflammation/neoplastic process. He was admitted to the medical floor and treated with IV fluids, pain medication, n.p.o. and a right upper quadrant ultrasound was performed. The ultrasound showed cholelithiasis and adenomyomatosis with sonographic findings consistent with acute cholecystitis. General surgery evaluated the patient and he was taken to the OR on 03/26/2021 for a laparoscopic cholecystectomy with cholangiogram. His cholangiogram was as expected with distal filling of the common bile duct and blush of contrast into the duodenum. An EGD as an outpatient was also recommended by general surgery and their plan is to follow-up with him in about a week after discharge for reevaluation of his surgical site and scheduling of his EGD. Postoperatively he had some significant pain the day following and adjustments were made to his pain regimen. He had resolution of his pain and was demanding discharge later in the day. His right had not been advanced yet given his pain earlier and given his severe pain earlier in the day we held discharge to 03/28/2021. The patient was feeling much better than the day previously. He was tolerating a full liquid to soft diet without difficulties. He is to continue this at discharge given the gastric findings and follow-up with Dr. Avila in 7 days. I did instruct him to call on Monday for an appointment and reinforced the importance of follow-up both for postoperative needs and most specifically his need for an EGD. During his hospital course he was placed on Protonix throug hout his stay and he was discharged on a 40 mg twice daily dosing that he is to continue for at least a month until after his EGD has been performed and new recommendations have been made. He was discharged home in stable condition with prescriptions for his Protonix, and a 2-day prescription for [place]. He may go back to work on Monday. Follow-up as above. Of note his tox screen was positive for methamphetamines on admission. He admits to chronic cannabis use as well. Discharge diagnoses: Acute cholecystitis Mild pancreatitis Gastric ulcer versus mass with abnormal CT scan Severe malnutrition Elevated blood pressure Tobacco abuse Polysubstance abuse THC use Physical Exam Const alert, oriented x3 and average body habitus Constitutional Narrative: Thin upper middle-aged white male, sitting up in a chair at the bedside and jumps up when I walk in the room, appears older than stated age, appears comfortable and nontoxic General Appearance: cooperative, comfortable, well kempt and well developed Orientation / Consciousness: awake Exam Limitations: no limitations Nutritional Appearance: thin HEENT normocephalic, head/scalp atraumatic, hearing grossly normal bilaterally, moist oral mucous membranes and oropharynx normal Eyes PERRL, EOMs intact bilaterally and conjunctivae normal Neck no lymphadenopathy, supple and no JVD Neck Narrative: Trachea midline, no thyroid enlargement, prominent Dinesh's apple Resp normal respiratory effort, no retractions, no use of accessory muscles and clear to auscultation bilaterally Auscultation: Negative for crackles, rales, rhonchi or wheezes Cardio regular rate, regular rhythm, S1 normal heart sound, S2 normal heart sound, no murmurs, no rub, no gallops, no clicks and no JVD GI normal to inspection, nondistended, normoactive bowel sounds, soft to palpation and non-distended GI Narrative: No significant tenderness, incision sites are clean dry and intact, Steri-Strips still in place Palpation: tender epigastric and RUQ and guarding Extremity normal to inspection and no clubbing, cyanosis or edema Skin no rashes or lesions noted, skin turgor normal and no jaundice Skin Narrative: Surgical abdominal wounds Neuro oriented x3, CN's II-XII intact bilaterally, moves all extremities and no focal motor deficits Sensorium / Orientation: awake and alert Speech: speech normal Motor Exam: strength 5/5 throughout Psych affect normal Mood & Affect: anxious Medical Records Data Medical Nutrition Assessment Dietitian: Malnutrition Criteria Met Start: 03/26/21 12:36 Freq: Status: Active Protocol: Document 03/26/21 12:36 ANISH (Rec: 03/26/21 12:36 [facility] [id number]) Nutrition Malnutrition Evidence of Malnutrition Exists Yes Malnutrition (severe): Acute Illness/Injury Evidenced By Suboptimal Energy Intake ( Severe),Weight Loss (Severe) Clinical Problem Acute Disease or Injury Related Malnutrition Etiology related to acute gallstone pancreatitis w/ nausea/ vomiting and inability to consume adequate letha/pro to meet estimated nutritional needs Signs/Symptoms as 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 Weight / BMI Weight Weight: 62 kg Body Mass Index (BMI) 20.1 ABG / Lab / Microbiology Data Result Diagrams: 03/28/21 05:24 03/28/21 05:24 Laboratory: Laboratory Results - last 24 hr 03/27/21 08:00: Sodium 137, Potassium 3.8, Chloride 105, Carbon Dioxide 28.0, Anion Gap 4 L, BUN 7, Creatinine 0.61 L, Estim Creat Clear Calc 122.42, Est GFR (MDRD) Af Amer 178, Est GFR (MDRD) Non-Af 148, BUN/Creatinine Ratio 11.5, Gluc ose 91, Calcium 8.1 L, Total Bilirubin 0.60, AST 33, ALT 61, Alkaline Phospha tase 82, Total Protein 6.3 L, Albumin 2.6 L, Globulin 3.7, Albumin/Globulin Ratio 0.7 L 03/28/21 05:24: WBC 9.4, RBC 4.47 L, Hgb 13.8, Hct 40.4, MCV 90.4, MCH 30.9, MCHC 34.2, RDW Std Deviation 43.1, RDW Coeff of Dwaine 13.2, Plt Count 207, MPV 8.9, Immature Gran % (Auto) 0.300, Neut % (Auto) 57.2, Lymph % (Auto) 27.6, [place] % (Auto) 10.4 H, Eos % (Auto) 3.5, Baso % (Auto) 1.0, Absolute Neuts (auto) 5.4, Absolute Lymphs (auto) 2.59, Nucleated RBC % 0 03/28/21 05:24: Sodium 139, Potassium 3.7, Chloride 105, Carbon Dioxide 29.0, Anion Gap 5, BUN 7, Creatinine 0.63 L, Estim Creat Clear Calc 118.53, Est GFR (MDRD) Af Amer 172, Est GFR (MDRD) Non-Af 142, BUN/Creatinine Ratio 11.1, Glucose 107 H, Calcium 8.7, Total Bilirubin 0.30, AST 28, ALT 59, Alkaline Phosphatase 80, Total Protein 6.8, Albumin 2.7 L, Globulin 4.1, Albumin/Globulin Ratio 0.7 L D/C Instructions Discharge Diet: Soft diet Discharge Activity: Return to Normal Activity Return to work on: 03/29/21 May resume sexual activity in: No Restrictions Meaningful Use Info Meaningful Use Diagnoses (Choose all that apply): None applicable Discharge Plan Admission Admit Date/Time: 03/25/21 19:54 Primary Reason for Your Visit: abdominal pain Attending Provider: Josefina Hardy Primary Care Provider: Care Physician,No Primary Consulting Providers: Marcus Avila Discharge Orders/Prescriptions Prescriptions: New pantoprazole 40 mg Tablet,Delayed Release (Dr/Ec) 40 mg PO BID Qty: 60 RF: 0 hydrocodone-acetaminophen 5-325 mg tablet 1 tab PO TID PRN (Reason: pain) 2 Days Qty: 6 RF: 0 No Action ondansetron [ondansetron] 4 MG tablet 4 mg PO Q8H PRN PRN (Reason: Nausea) Qty: 10 RF: 0 Referrals / Follow Up: Marcus Avila MD [STAFF PHYSICIAN] - In 1 Week (For EGD and surgical follow-up) Care Physician,No Primary [Primary Care Provider] - Disposition Disposition (needs filled in before D/C Order can be placed): Home, Self Care Charges/Coding Visit Charges Inpatient E&M: 14397 Disch Hosp
[2021-03-28 08:17] VITALS: BP 111/70; PULSE 67; RESP 14; TEMP 36.8; O2SAT 98
[2021-03-28 08:19] VITALS: O2SAT 95
== END 2021-03-28 08:42 | disposition home or self-care (01) | DRG 263 ==
LOC: ED 17:49 → MS2 20:07
PROVIDERS: Surgery; Admitting Provider Family Medicine; Emergency Provider Emergency Medicine; Visit Provider Internal Medicine
PROC: 0FT44ZZ Resection of Gallbladder, Percutaneous Endoscopic Approach (ICD-10-PCS; CPT 47610; principal; 2021-03-26 16:10)
DX: K85.10 Biliary acute pancreatitis without necrosis or infection (principal); K80.12 Calculus of gallbladder with acute and chronic cholecystitis without obstruction; E86.0 Dehydration; F17.210 Nicotine dependence, cigarettes, uncomplicated; F12.10 Cannabis abuse, uncomplicated; K31.9 Disease of stomach and duodenum, unspecified; Z68.20 Body mass index [BMI] 20.0-20.9, adult; R03.0 Elevated blood-pressure reading, without diagnosis of hypertension; E43 Unspecified severe protein-calorie malnutrition; F15.10 Other stimulant abuse, uncomplicated
CPT/HCPCS: 36415; 71045; 74177; 74300; 76000; 76705; 80053; 80061; 80307; 81001; 83036; 83690; 85025; 87426; 88304; 93005; 96374; 96375; 99283; 99284; 99406; J7030; Q9967; A4216; J2405

== ENCOUNTER 2021-08-15 11:22 | Emergency (ER) | payer MEDICAID, SELFPAY ==
[2021-08-15 11:23] VITALS: BP 158/95; PULSE 79; RESP 18; TEMP 35.9; O2SAT 100; BMI 20.7
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
[2021-08-15] MEDS: Amox/Clavulanate 875 MG Tablet PO (12:07)
[2021-08-15] MEDS: Naproxen 500 MG Tablet PO (12:07)
[2021-08-15] MEDS: BMX LIQUID 180 ML PO (12:48)
== END 2021-08-15 12:52 | disposition home or self-care (01) ==
PROVIDERS: Emergency Provider Student in an Organized Health Care Education/Training Program; Visit Provider Student in an Organized Health Care Education/Training Program
DX: K08.89 Other specified disorders of teeth and supporting structures (principal); F17.210 Nicotine dependence, cigarettes, uncomplicated; F12.90 Cannabis use, unspecified, uncomplicated
CPT/HCPCS: 99283